=== PATIENT | male | born 1950 | race Caucasian/White ===

== ENCOUNTER 2023-04-26 14:16 | Outpatient (OUT) | payer MEDICARE, SELFPAY ==
[2023-04-26 14:56] LABS: Basophils Percent Auto 0.4 % (0.2-2.0); Eosinophils Absolute Auto 0.2 10^3/uL (0.0-0.7); Eosinophils Percent Auto 2.6 % (0.9-7.0); Hematocrit 49.2 % (42.0-54.0); Hemoglobin 16.4 g/dL (14.0-18.0); Immature Granulocytes Abs Auto 0.02 10^3/uL (0.00-0.03); Immature Granulocytes Pct Auto 0.3 % (0.0-0.5); Lymphocytes Absolute Auto 1.8 10^3/uL (1.2-3.8); Lymphocytes Percent Auto 25.8 % (20.5-60.0); Mean Corpuscular HGB Conc 33.3 g/dL (29.9-35.2); Mean Corpuscular Hemoglobin 29.5 pg (25.9-34.0); Mean Corpuscular Volume 88.5 fL (80.0-94.0); Monocytes Absolute Auto 0.5 10^3/uL (0.3-0.8); Monocytes Percent Auto 6.9 % (1.7-12.0); Neutrophils Absolute Auto 4.4 10^3/uL (1.4-6.5); Platelet Count 156 10^3/uL (150-450); Red Blood Count 5.56 10^6/uL (4.70-6.10); Red Cell Distribution Width 12.9 % (11.0-15.0); White Blood Count 6.8 10^3/uL (4.0-11.0)
[2023-04-26 15:26] LABS: Prostate Specific Antigen Dx 0.81 ng/mL (<=4.00)
[2023-04-26 15:27] LABS: Alanine Aminotransferase 57 U/L (16-63); Albumin Globulin Ratio 0.8; Albumin Level 3.6 g/dL (3.4-5.0); Alkaline Phosphatase 136 U/L (46-116); Anion Gap 13.1; Aspartate Amino Transferase 43 U/L (15-37); Bilirubin Total 0.8 mg/dL (0.2-1.0); Calcium 9.3 mg/dL (8.5-10.1); Carbon Dioxide 26.2 mmol/L (21.0-32.0); Chloride 104 mmol/L (98-107); Chol HDL Ratio 4.5; Cholesterol 210 mg/dL (<=200); Estimated GFR (African America >60 (>=60); Estimated GFR (Non-African Ame 54 (>=60); Globulin 4.3 g/dL; Glucose 116 mg/dL (74-106); HDL Cholesterol 47 mg/dL (40-60); Potassium 4.3 mmol/L (3.5-5.1); Sodium 139 mmol/L (136-145); Total Protein 7.9 g/dL (6.4-8.2); Triglycerides 433 mg/dL (<=150); VLDL CHOLESTEROL 86.6 mg/dL
[2023-04-26 15:30] LABS: LDL Cholesterol Direct 97 mg/dL
== END 2023-04-26 14:17 | disposition home or self-care (01) ==
LOC: LAB 14:21
PROVIDERS: PCP Family Medicine; Visit Provider Physician Assistant
DX: Z00.00 Encounter for general adult medical examination without abnormal findings (principal); E11.21 Type 2 diabetes mellitus with diabetic nephropathy; E78.2 Mixed hyperlipidemia; Z12.5 Encounter for screening for malignant neoplasm of prostate
CPT/HCPCS: 36415; 80053; 80061; 83721; 84153; 85025

== ENCOUNTER 2023-06-11 13:18 | Emergency (ER) | payer MEDICARE, SELFPAY ==
[2023-06-11 13:26] VITALS: BP 155/98; PULSE 71; RESP 18; TEMP 37.1; O2SAT 94; BMI 37.1
--- OUTSIDE RECORDS SUMMARY | 2023-06-11 13:35 | XMS_ITS | CCD ---
Author Organization [facility] Care Team Providers Care Reproduction Order Processor Name Role Phone Humberto Emmanuel Primary Care Provider [phone] HUMBERTO EMMANUEL Primary Care Unavailable TYLER TAMEZ Admitting Unavailable TYLER TAMEZ Attending Unavailable HUMBERTO EMMANUEL Primary Care Unavailable HUMBERTO EMMANUEL Primary Care Unavailable Bryant Alvares MD Unavailable Humberto Emmanuel MD Unavailable Humberto Emmanuel MD Primary Care Provider HUMBERTO EMMANUEL Attending Unavailable CINTHIA MEJIA Attending Unavailable Medications Current Medications Medication Drug Class(es) Dates Sig (Normalized) Sig (Original) Acetaminophen / HYDROcodone (1 source) Opioid Agonist Start: 05-17-2019 hydrocodone-aceta minophen (NORCO) tablet 5-325 mg (STARTER PACK) aspirin 81 mg chewable tablet (2 sources) Platelet Aggregation Inhibitor, Nonsteroidal Anti-inflammatory Drug aspirin 81 MG chewable tablet 1 (one) time each day at the same time. 0 Active take 1 tablet by mouth once laverne y aspirin 81 MG tablet Take 81 mg by mouth daily 0 Active atorvastatin 40 mg oral tablet (2 sources) HMG-CoA Reductase Inhibitor atorvastatin (Lipitor) 40 MG tablet 1 (one) time each day at the same time. 0 Active baclofen 10 mg oral tablet (1 source) gamma-Aminobutyric Acid-ergic Agonist take 1 tablet by mouth three times daily baclofen (LIORESAL) 10 MG tablet Take 10 mg by mouth 3 times daily 0 Active cholecalciferol 0.025 mg oral capsule (2 sources) Vitamin D cholecalciferol (Vitamin D-3) 25 MCG (1000 UT) capsule 1 (one) time each day at the same time. 0 Active Continuous Blood Gluc Electrical Systems Designer ([employer] Akila 2 Adams) device (1 source) Start: 022 Continuous Blood Gluc Electrical Systems Designer (FreeStyle Akila 2 Adams) device DIRECTED DAILY 30 DAYS 0 01/15/2022 Active Continuous Blood Gluc Sensor (FreeStyle Akila 2 Sensor) [facility] [place] (1 source) Start: Continuous Blood Gluc Sensor (FreeStyle Akila 2 Sensor) [facility] Indications: Type 2 diabetes mellitus without complications (CMS/HCC) Inject 1 each under the skin every 14 (fourteen) days. 2 each 12/01/2022 Active empagliflozin 25 mg / linagliptin 5 mg oral tablet (1 source) Dipeptidyl Peptidase 4 Inhibitor, Sodium-Glucose Cotransporter 2 Inhibitor Empagliflozin-Linagl i ptin 25-5 MG TABS Take by mouth 0 Active glipiZIDE er 5 mg 24 hr extended release oral tablet (2 sources) Sulfonylurea Start: take 5 mg by mouth every twelve hours for diabetes mellitus and diabetes mellitus glipiZIDE XL (Glucotrol XL) 5 MG 24 hr tablet Indications: Diabetes mellitus with kidney disease (CMS/HCC) Take 1 tablet (5 mg) by mouth every 12 (twelve) hours 200 tablet 2 03/18/2023 Active take 1 tablet by mouth once laverne y glipiZIDE (GLUCOTROL XL) 2.5 MG extended release tablet Take 2.5 mg by mouth daily 0 Active 3 ml insulin glargine 100 unt/ml / lixisenatide 0.033 mg/ml pen injector (1 source) Insulin Analog Start: 04-12-2023 End: 04-11-2024 inject 2 [IU] by subcutaneous injection before mealtime insulin glargine-lixisenatide (Soliqua) 100-33 UNT-MCG/ML pen Indications: Type 2 diabetes mellitus without complication, with long-term current use of insulin (CMS/HCC) , Diabetic nephropathy associated with type 2 diabetes mellitus (HCC) (CMS/HCC) Inject 30 Units under the skin in the morning. Inject before meals. Increase by 2 units every 4 days till morning sugars are less than 120. If low sugars reduce Humulin N. Goal is to get off Humulin N completely. 0 04/12/2023 04/11/2024 Active 3 ml insulin isophane, human 100 unt/ml pen injector (1 source) Start: 04-19-2023 insulin NPH, Isophane, (HumuLIN N KWIKPEN) 100 UNIT/ML injection Indications: Type 2 diabetes mellitus without complication, with long-term current use of insulin ([facility]) INJECT 22 UNITS IN THE MORNING AND 20 UNITS IN THE EVENING UNDER THE SKIN. INCREASE BY 2 UNITS ALTERNATING EVERY 4 DAYS TILL AVERAGE SUGARS ARE 120 OR LESS. 15 mL 3 04/19/2023 Active metFORMIN hydrochloride 500 mg oral tablet (1 source) Biguanide take 1 tablet by mouth twice daily at mealtime metFORMIN (GLUCOPHAGE) 500 MG tablet Take 500 mg by mouth 2 times daily (with meals) 0 Active naproxen 500 mg oral tablet (1 source) Nonsteroidal Anti-inflammator y Drug Start: 05-17-2019 take 1 tablet by mouth twice daily naproxen (NAPROSYN) 500 MG tablet Take 1 tablet by mouth 2 times daily 14 tablet 0 05/17/2019 Active nystatin 082808 unt/ml topical cream (1 source) Polyene Antifungal Start: 02-27-2022 nystatin (Mycostatin) cream 1 application every 12 (twelve) hours. 0 02/27/2022 Active oxaprozin 600 mg oral tablet (3 sources) Nonsteroidal Anti-inflammator y Drug Start: 08-18-2022 oxaprozin (Daypro) 600 MG tablet Indications: Chronic arthritis TAKE 1 TABLET DAILY 90 tablet 3 09/10/2022 Active take 2 tablets by mouth once gayatri ly oxaprozin (DAYPRO) 600 MG tablet Take 1,200 mg by mouth daily 0 Active traMADol hydrochloride 50 mg oral tablet (1 source) Opioid Agonist take 1 tablet by mouth every six hours as needed for pain traMADol (ULTRAM) 50 MG tablet Take 50 mg by mouth every 6 hours as needed for Pain. 0 Active valsartan 80 mg oral tablet (2 sources) Angiotensin 2 Receptor Abdoulaye valsartan (Diovan) 80 MG tablet 1 (one) time each day at the same time. 0 Active Problems Active Problems Problem Classification Problem Date Documented Da te Episodic/Chronic Diabetes mellitus with complications (2 sources) Diabetes mellitus; Translations: [Type 2 diabetes mellitus with diabetic nephropathy] Onset: 08-24-2022 08-24-2022 Chronic Diabetes mellitus without complication (1 source) Type 2 diabetes mellitus without complication; Translations: [Type 2 diabetes mellitus without complications] Onset: 08-24-2022 08-24-2022 Chronic Disorders of lipid metabolism (1 source) Hyperlipidemia; Translations: [Hyperlipidemia, unspecified] Onset: 08-24-2022 08-24-2022 Chronic Hypertension with complications and secondary hypertension (1 source) Hypertension secondary to endocrine disorder; 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] Onset: 08-24-2022 08-24-2022 Chronic Immunizations and screening for infectious disease (1 source) Encounter for immunization; Translations: [Encounter For Immunization] Onset: 08-12-2020 Episodic Osteoarthritis (2 sources) Arthritis; Translations: [Unspecified osteoarthritis, unspecified site] Onset: 08-18-2022 08-18-2022 Chronic Other nutritional; endocrine; and metabolic disorders (1 source) Metabolic syndrome X; Translations: [Dysmetabolic syndrome X] Onset: 08-24-2022 08-24-2022 Chronic Spondylosis; intervertebral disc disorders; other back problems (1 source) Inflammation of sacroiliac joint; Translations: [Sacroiliitis, not elsewhere classified] Onset: 08-24-2022 08-24-2022 Chronic Sprains and strains (1 source) Strain of muscle of chest wall; Translations: [Muscle strain of chest wall, initial encounter] Episodic Past or Other Problems Problem Classification Problem Date Documented Da te Episodic/Chronic Calculus of urinary tract (1 source) Kidney stone; Translations: [Calculus of kidney] Onset: 08-24-2022 08-24-2022 Episodic Hemorrhoids (1 source) Internal hemorrhoids; Translations: [Other hemorrhoids] Onset: 08-24-2022 08-24-2022 Episodic Unclassified (1 source) Patient encounter status; Translations: [Colon cancer screening] Onset: 07-19-2018 Resolved: 08-28-2018 08-28-2018 Results Test Name Value Interpretation Reference Range Facility Complete Blood Count with Au to Diffon 07-22-2021 Basophils (Bld) [#/Vol] 0.04 10*3/uL Normal 0.00-0.20 [facility] Investment Banking Analyst Comment on above: Performed By: #### C MP, LIPD, CBCAD #### [facility] [address] [place] [id number] Basophils/100 WBC (Bld) 0.8 % Normal [facility] Comment on above: Performed By: #### C MP, LIPD, CBCAD #### [facility] [address] [place], [place] [id number] Eosinophils (Bld) [#/Vol] 0.20 10*3/uL Normal 0.02-0.50 [facility] Comment on above: Performed By: #### C MP, LIPD, CBCAD #### [facility] [address] [place], [place] [id number] Eosinophils/100 WBC (Bld) 4.2 % Normal [facility] Comment on above: Performed By: #### C MP, LIPD, CBCAD #### [facility] [address] [place], [place] [id number] Erythrocyte distribution width (RBC) [Ratio] 13.5 % Normal 11.0-15.0 [facility] [employer] Banking Analyst Comment on above: Performed By: #### C MP, LIPD, CBCAD #### [facility] [address] [place], [place] [id number] Hematocrit (Bld) [Volume fraction] 49.3 % Normal 38.5-50.0 [facility] Comment on above: Performed By: #### C MP, LIPD, CBCAD #### [facility] [address] [place], [place] [id number] Hemoglobin (Bld) [Mass/Vol] 16.2 g/dL Normal 13.0-17.1 [facility] [employer] Analyst Comment on above: Performed By: #### C MP, LIPD, CBCAD #### [facility] [address] [place], [place] [id number] Lymphocytes (Bld) [#/Vol] 1.4 10*3/uL Normal 0.9-3.9 [facility] Comment on above: Performed By: #### C MP, LIPD, CBCAD #### [facility] [address] [place], [place] [id number] Lymphocytes/100 WBC (Bld) 30.3 % Normal [facility] Comment on above: Performed By: #### C MP, LIPD, CBCAD #### [facility] [address] [place], [place] [id number] MCH (RBC) [Entitic mass] 29.2 pg Normal 27.0-33.0 [facility] Comment on above: Performed By: #### C NEYDA ALVARADO, CBCAD #### [facility] [address] [place], [place] [id number] MCHC (RBC) [Mass/Vol] 32.9 g/dL Normal 32.0-36.0 [facility] Comment on above: Performed By: #### C NEYDA ALVARADO, CBCAD #### [facility] [address] [place], [place] [id number] MCV (RBC) [Entitic vol] 89 fL Normal 80-100 [facility] Comment on above: Performed By: #### C NEYDA ALVARADO, CBCAD #### [facility] [address] [place], [place] [id number] Monocytes (Bld) [#/Vol] 0.3 10*3/uL Normal 0.2-0.9 [facility] Comment on above: Performed By: #### C NEYDA ALVARADO, CBCAD #### [facility] [address] [place], [place] [id number] Monocytes/100 WBC (Bld) 6.3 % Normal [facility] Comment on above: Performed By: #### C NEYDA ALVARADO, CBCAD #### [facility] [address] [place], [place] [id number] Neutrophils (Bld) [#/Vol] 2.8 10*3/uL Normal 1.5-7.8 [facility] Comment on above: Performed By: #### C NEYDA ALVARADO, CBCAD #### [facility] [address] [place], [place] [id number] Neutrophils/100 WBC (Bld) 58.0 % Normal [facility] Comment on above: Performed By: #### C NEYDA ALVARADO, CBCAD #### [facility] [address] [place], [place] [id number] Platelet mean volume (Bld) [Entitic vol] 10.60 fL Normal 7.50-12.50 [facility] Comment on above: Performed By: #### C NEYDA ALVARADO, CBCAD #### [facility] [address] [place], [place] [id number] Platelets (Bld) [#/Vol] 135 10*3/uL Low 140-400 [facility] Comment on above: Performed By: #### C MP, LIPD, CBCAD #### [facility] [address] [place], [place] [id number] RBC (Bld) [#/Vol] 5.55 10*6/uL Normal 4.20-5.80 [facility] Comment on above: Performed By: #### C MP, LIPD, CBCAD #### [facility] [address] [place], [place] [id number] RDW-SD 44.0 fL Normal 37.0-50.0 [facility] Comment on above: Performed By: #### C MP, LIPD, CBCAD #### [facility] [address] [place], [place] [id number] WBC (Bld) [#/Vol] 4.8 10*3/uL Normal 3.8-11.0 [facility] Comment on above: Performed By: #### C MP, LIPD, CBCAD #### [facility] [address] [place], [place] [id number] Comprehensive Metabolic Pane [facility] 07-22-2021 Albumin [Mass/Vol] 4.6 g/dL Normal 3.6-5.1 [facility] Comment on above: Performed By: #### C MP, LIPD, CBCAD #### [facility] [address] [place], [place] [id number] Albumin/Globulin [Mass ratio] 1.9 {ratio} Normal 1.0-2.5 [facility] Comment on above: Performed By: #### C MP, LIPD, CBCAD #### [facility] [address] [place], [place] [id number] ALP [Catalytic activity/Vol] 116 U/L Normal 40-129 [facility] Comment on above: Performed By: #### C MP, LIPD, CBCAD #### [facility] [address] [place], [place] [id number] ALT [Catalytic activity/Vol] 31 U/L Normal 9-46 [place] [employer] Analyst Comment on above: Result Comment: 02/19 Female reference range changed. Performed By: #### C MP, LIPD, CBCAD #### [facility] [address] [place], [place] [id number] Anion gap [Moles/Vol] 17 mmol/L Normal 12-20 [facility] Comment on above: Result Comment: Effe ctive 03/27/2019 reference range changed. Performed By: #### C MP LIPD, CBCAD #### [facility] [address] [place], [place] [id number] AST [Catalytic activity/Vol] 28 U/L Normal 10-40 [facility] Comment on above: Performed By: #### C JENNY LIPD, CBCAD #### [facility] [address] [place], [place] [id number] Bilirubin [Mass/Vol] 0.65 mg/dL Normal 0.30-1.20 [facility] Comment on above: Performed By: #### C JENNY LIPD, CBCAD #### [facility] [address] [place], [place] [id number] BUN/CREA 16 Ratio Normal 6-22 [facility] Comment on above: Performed By: #### C JENNY LIPD, CBCAD #### [facility] [address] [place], [place] [id number] Calcium [Mass/Vol] 9.8 mg/dL Normal 8.6-10.2 [facility] Comment on above: Performed By: #### C JENNY LIPD, CBCAD #### [facility] [address] [place], [place] [id number] Chloride [Moles/Vol] 105 mmol/L Normal 98-107 [facility] Comment on above: Performed By: #### C MP, LIPD, CBCAD #### [facility] [address] [place], [place] [id number] CO2 [Moles/Vol] 21 mmol/L Normal 20-31 [facility] Comment on above: Performed By: #### C MP LIPD, CBCAD #### [facility] [address] [place], [place] [id number] Creatinine [Mass/Vol] 1.1 mg/dL Normal 0.7-1.4 [facility] [employer] Analyst Comment on above: Performed By: #### C NEYDA ALVARADO, CBCAD #### [facility] [address] [place], [place] [id number] eGFRAA 83 mL/min/1.73m2 Normal >60 [facility] [employer] Analyst Comment on above: Performed By: #### C JENNY LIPD, CBCAD #### [facility] [address] [place], [place] [id number] eGFRNAA 68 mL/min/1.73m2 Normal >60 [facility] [employer] Analyst Comment on above: Performed By: #### C JENNY LIPD, CBCAD #### [facility] [address] [place], [place] [id number] Globulin (S) [Mass/Vol] 2.4 g/dL Normal 1.9-3.7 [facility] [employer] Analyst Comment on above: Performed By: #### C SAKSHI ALVARADOD, CBCAD #### [facility] [address] [place], [place] [id number] Glucose [Mass/Vol] 143 mg/dL High 65-99 [facility] [employer] Banking Analyst Comment on above: Result Comment: For FASTING Glucose --- ADA reference ranges: Normal 65-99 mg/dl Prediabetes 100-125 Diabetes >/= 126 Performed By: #### C SAKSHI ALVARADOD, CBCAD #### [facility] [address] [place], [place] [id number] Potassium [Moles/Vol] 4.3 mmol/L Normal 3.5-5.5 [facility] [employer] Analyst Comment on above: Performed By: #### C JENNY LIPD, CBCAD #### [facility] [address] [place], [place] [id number] Protein [Mass/Vol] 7.0 g/dL Normal 6.1-8.1 [facility] [employer]ing Analyst Comment on above: Performed By: #### C JENNY LIPD, CBCAD #### [facility] [address] [place], [place] [id number] Sodium [Moles/Vol] 139 mmol/L Normal 135-146 [facility] [employer] Banking Analyst Comment on above: Performed By: #### C JENNY LIPD, CBCAD #### [facility] [address] [place], [place] [id number] Urea nitrogen [Mass/Vol] 17 mg/dL Normal 7-25 [facility] [employer] Analyst Comment on above: Performed By: #### C SAKSHI ALVARADOD, CBCAD #### [facility] [address] [place], [place] [id number] Lipid Panelon 07-22-2021 Cholesterol [Mass/Vol] 203 mg/dL High 125-200 [facility] [employer] Analyst Comment on above: Result Comment: Low risk < 200mg/dL Borderline risk 201-239 mg/dl High risk > or equal to 240 Performed By: #### C JENNY, LIPD, CBCAD #### [facility] [address] [place], [place] [id number] Cholesterol in HDL [Mass/Vol] 41 mg/dL Normal >40 [facility] [employer] Analyst Comment on above: Result Comment: High Cardiovascular Risk HDL <40 mg/dL Low Cardiovascular Risk HDL > or equal to 60 mg/dl Performed By: #### C JENNY, LIPD, CBCAD #### [facility] [address] [place], [place] [id number] Cholesterol in LDL [Mass/Vol] 82 mg/dL Normal [facility] [employer] Analyst Comment on above: Result Comment: LDL ATP III CLASSIFICATION LDL less than 100 mg/dl Optimal LDL 100-129 mg/dl Near or above optimal LDL 130-159 Borderline high LDL 160-189 High LDL greater than 189 mg/dl Very High Performed By: #### C JENNY, LIPD, CBCAD #### [facility] [address] [place], [place] [id number] Cholesterol in VLDL [Mass/Vol] 80 mg/dL Normal [facility] [employer] Analyst Comment on above: Performed By: #### C JENNY, LIPD, CBCAD #### [facility] [address] [place], [place] [id number] Cholesterol.total/C holesterol in HDL [Mass ratio] 5 {ratio} Normal [facility] [employer] Analyst Comment on above: Performed By: #### C JENNY, LIPD, CBCAD #### [facility] [address] [place], [place] [id number] Triglyceride [Mass/Vol] 399 mg/dL High 30-150 [facility] [employer] Analyst Comment on above: Result Comment: TRIG ATPIII CLASSIFICATIONS TRIG less than 150 mg/dl Normal TRIG 150-199 mg/dl Borderline High TRIG 200-500 mg/dl High TRIG greather than 500 mg/dl Very High Performed By: #### C MP, LIPD, CBCAD #### [facility] [address] [place], [place] [id number] PSA SCREEN (MEDICARE)on TPSA 0.942 ng/mL Normal <4.000 [facility] [employer] Analyst Comment on above: Result Comment: PSA Test Method: ECLIA/Natalia e 601 Performed By: #### P SA #### [facility] [address] [place], [place] [id number] XR RIBS LEFT INCLUDE CHEST ( MIN 3 VIEWS)on 05-17-2019 XR RIBS LEFT INCLUDE CHEST (MIN 3 VIEWS) EXAMINATION: 3 XRAY VIEWS OF THE LEFT RIBS WITH FRONTAL XRAY VIEW OF THE CHEST 05/17/2019 7:01 pm COMPARISON: None. HISTORY: ORDERING SYSTEM PROVIDED HISTORY: Acute left chest pain after coughing FINDINGS: 5 images are presented. The cardiomediastinal and hilar silhouettes appear unremarkable. Chronic appearing coarse interstitial densities predominate perihilar regions and lung bases, typical of sequela from smoking or other previous infectious/inflammator y process. The lungs are hyperinflated with mild flattening of the hemidiaphragms, increased translucency both lung apices and tapering of the vasculature in the upper lungs. Calcified granulomata are present both lower lungs. The lungs appear otherwise clear. No pleural effusion or pneumothorax is seen. No acute osseous abnormality is identified. Dedicated images of the left ribs appear unremarkable. No rib lesion or fracture is seen. IMPRESSION: No discrete left rib fracture. No radiographic evidence of acute cardiopulmonary disease. Pulmonary sequela typical of that seen with smoking (passive or active), including possible COPD; correlate with clinical history. Bone scan correlation may be considered if pain persists or worsens, or if clinically there is concern for underlying radiographically occult process. Interpreted by: Angel Ha MD Signed by: Angel Ha MD 05/17/19 Final result Normal [facility] No discrete left rib fracture. No radiographic evidence of acute cardiopulmonary disease. Pulmonary sequela typical of that seen with smoking (passive or active), including possible COPD; correlate with clinical history. Bone scan correlation may be considered if pain persists or worsens, or if clinically there is concern for underlying radiographically occult process. [place], [place] EXAMINATION: 3 XRAY VIEWS OF THE LEFT RIBS WITH FRONTAL XRAY VIEW OF THE CHEST 05/17/2019 7:01 pm COMPARISON: None. HISTORY: ORDERING SYSTEM PROVIDED HISTORY: Acute left chest pain after coughing FINDINGS: 5 images are presented. The cardiomediastinal and hilar silhouettes appear unremarkable. Chronic appearing coarse interstitial densities predominate perihilar regions and lung bases, typical of sequela from smoking or other previous infectious/inflammator y process. The lungs are hyperinflated with mild flattening of the hemidiaphragms, increased translucency both lung apices and tapering of the vasculature in the upper lungs. Calcified granulomata are present both lower lungs. The lungs appear otherwise clear. No pleural effusion or pneumothorax is seen. No acute osseous abnormality is identified. Dedicated images of the left ribs appear unremarkable. No rib lesion or fracture is seen. [place], [place] Rob, [facility] Incoming Radiant Results From [employer] - 05/17/2019 7:10 PM EST EXAMINATION: 3 XRAY VIEWS OF THE LEFT RIBS WITH FRONTAL XRAY VIEW OF THE CHEST 05/17/2019 7:01 pm COMPARISON: None. HISTORY: ORDERING SYSTEM PROVIDED HISTORY: Acute left chest pain after coughing FINDINGS: 5 images are presented. The cardiomediastinal and hilar silhouettes appear unremarkable. Chronic appearing coarse interstitial densities predominate perihilar regions and lung bases, typical of sequela from smoking or other previous infectious/inflammator y process. The lungs are hyperinflated with mild flattening of the hemidiaphragms, increased translucency both lung apices and tapering of the vasculature in the upper lungs. Calcified granulomata are present both lower lungs. The lungs appear otherwise clear. No pleural effusion or pneumothorax is seen. No acute osseous abnormality is identified. Dedicated images of the left ribs appear unremarkable. No rib lesion or fracture is seen. IMPRESSION: No discrete left rib fracture. No radiographic evidence of acute cardiopulmonary disease. Pulmonary sequela typical of that seen with smoking (passive or active), including possible COPD; correlate with clinical history. Bone scan correlation may be considered if pain persists or worsens, or if clinically there is concern for underlying radiographically occult process. [place], [place] Vital Signs Date Time Vital Sign Value Performing Clinician Faci lity 05-17-2019 18:34-0500 BP Diastolic 69 mm[Hg] [facility] , [place] 05-17-2019 18:34-0500 BP Systolic 131 mm[Hg] [place], [place] 05-17-2019 18:34-0500 Pulse (Heart Rate) 81 /min [place], [place] 05-17-2019 18:34-0500 Respiratory Rate 20 /min [facility], [place] 05-17-2019 18:16-0500 BMI (Body Mass Index) 38.4 kg/m2 [place], [place] 05-17-2019 18:16-0500 Body Temperature 97.9 [degF] [facility], [place] 05-17-2019 18:16-0500 Body weight 117.94 kg [facility] , [place] 05-17-2019 18:16-0500 Pulse Oximetry 96 % [place], [place] Encounters Encounter Date Encounter Type Care Provider Facility Start: 04-26-2023 End: 04-26-2023 ambulatory CINTHIA Camille JACKIE Not Available Start: 04-26-2023 Chart abstracting Cinthia Camille Denisse er PA Work Phone: [facility] Start: 04-12-2023 End: 04-12-2023 ambulatory HUMBERTO EMMANUEL Not Available Start: 08-12-2020 End: 08-12-2020 General Kandi Sol PharmD Work Phone: [facility] Work Phone: Start: 05-17-2019 End: 05-17-2019 Emergency department patient visit [facility] Camille [facility] Start: 05-17-2019 End: 05-17-2019 Emergency department patient visit [facility] ED Comment on above: Muscle strain of erick st wall, initial encounter (Primary Dx) Start: 08-26-2018 End: 08-26-2018 Emergency department patient visit HUMBERTO WALKERA [facility] Start: 08-03-2018 End: 08-03-2018 Patient encounter procedure TYLER TAMEZ [facility] Procedures Date Procedure Procedure Detail Performing Clinician Start: 08-12-2020 Imm. administration COVID19 Mitch & Mitch Kandi Hoselamg PharmD Work Phone: Start: 08-12-2020 SARS-CoV-2 vaccine, 0.5ml Mitch & Mitch Kandi Hoyng PharmD Work Phone: Start: 05-17-2019 Radex ribs uni w/pos teroant ch minimum 3 views RUGEN CHOLO Start: 05-17-2019 Radex ribs uni w/pos teroant ch minimum 3 views Jamel Del Toro Work Phone: Start: 08-03-2018 DIET GENERAL HUMBERTO CHOLO Start: 08-03-2018 MISCELLANEOUS NURSIN G CARE ORDER (SPECIFY) RUGEN CHOLO Start: 08-03-2018 REMOVE IV RUGEN CHOLO Start: 08-03-2018 VITAL SIGNS RUGEN CHOLO Start: 08-03-2018 DISCHARGE PATIENT RUGEN CHOLO Start: 08-03-2018 INSERT PERIPHERAL IV RU GEN CHOLO Start: 08-03-2018 Colonoscopy Cinthia AVILES Work Phone: Plan of Treatment Date Care Activity Detail Author Start: 08-03-2028 Colon cancer screen colonoscopy Colon cancer screen colonoscopy [place], [place] Start: 08-03-2028 Screening for malign ant neoplasm of colon [facility] Start: 05-01-2024 Glaucoma screening Diabetes: R etinopathy Screening [facility] Start: 01-09-2024 Pneumococcal Vaccine : 65+ Years (2 - PCV) Pneumococcal Vaccine: 65+ Years (2 - PCV) [facility] Comment on above: Postponed from 03/12 (Patient Refused) Start: 10-11-2023 End: 10-11-2023 Patient encounter procedure 10/11/2023 1:00 PM EDT Office Visit [facility] [address] [facility] [address] [place] [id number] Humberto Emmanuel MD [address] [facility] [address] [place], [place] [id number] [facility] Start: 07-12-2023 Hemoglobin A1c measurement Diabetes: Hemoglobin A1C [facility] Start: 06-23-2023 Medicare Annual Wellness (AWV) Medicare Annual Wellness (AWV) [facility] Start: 04-26-2023 End: 04-26-2023 Patient encounter procedure 04/26/2023 1:30 PM EST Office Visit [facility] [address] [facility] [address] [place] [phone] Cinthia Mejia PA [address] [facility] [address] [place] [address] [facility] Start: 11-20-2018 Influenza vaccination Flu vaccine (# 1) [place], [place] Start: 09-11-2018 Annual Wellness Visi t (AWV) Annual Wellness Visit (AWV) [place] Start: 2016 Pneumococcal 65+ yea rs Vaccine (1 of 1 - PPSV23) Pneumococcal 65+ years Vaccine (1 of 1 - PPSV23) [place] Start: 02-21-2015 Creatinine monitoring Creatinine mon itoring [place] Start: 02-21-2015 Lipid screen Lipid screen [place], [place] Start: 02-21-2015 Potassium monitoring Potassium monit [place]ing [place] Start: 2001 Shingles Vaccine (1 of 2) Shingles Vaccine (1 of 2) [place] Start: 1962 DTaP/Tdap/Td vaccine (1 - Tdap) DTaP/Tdap/Td vaccine (1 - Tdap) [place] Start: 1950 AAA screen AAA screen [place], [place] Start: 1950 Hepatitis C screen Hepatitis C scree n [place], [place] Start: 1950 Screening for malign ant neoplasm of colon [facility] Immunizations Immunization Date Immunization Notes Care Provider Fa cili 01-12-2023 Influenza, High-dose Seasonal, Quadrivalent, Preservative Free Cinthia AVILES Work Phone: [facility] 01-15-2022 influenza, high dose seasonal, preservative-free Cinthia Hemmer PA Work Phone: [facility] 01-20-2021 influenza, high dose seasonal, preservative-free Cinthia Hemmer PA Work Phone: [facility] 08-12-2020 Mitch and Mitch COVID 19 Vaccine; Translations: [Annette] Bryant Alvares MD Work Phone: [facility] Work Phone: Comment on above: Note: Patient tolera arielle well. No signs or symptoms of adverse reactions. Patient waited a minimum of 15 minutes. 12-19-2019 influenza, high dose seasonal, preservative-free Cinthia Hemmer PA Work Phone: [facility] 12-19-2019 Influenza, High-dose Seasonal, Quadrivalent, Preservative Free Cinthia Hemmer PA Work Phone: [facility] 02-09-2019 influenza, high dose seasonal, preservative-free Cinthia Hemmer PA Work Phone: [facility] 02-09-2019 Influenza, High-dose Seasonal, Quadrivalent, Preservative Free Cinthia Hemmer PA Work Phone: [facility] 03-18-2017 influenza, injectabl e, quadrivalent, contains preservative Cinthia Hemmer PA Work Phone: [facility] 03-18-2017 influenza, injectabl e, quadrivalent, preservative free Cinthia Hemmer PA Work Phone: [facility] 03-12-2017 pneumococcal polysaccharide vaccine, 23 valent Cinthia Hemmer PA Work Phone: [facility] 12-26-2015 influenza, injectabl e, quadrivalent, contains preservative Cinthia Hemmer PA Work Phone: [facility] 12-26-2015 influenza, injectabl e, quadrivalent, preservative free Cinthia Hemmer PA Work Phone: [facility] Payers Date Payer Category Payer Medicare ANTHEM MEDICARE ADVANTAGE ANTH MEDICARE ADVANTAGE [id number] 2022-Present [address] [place] [address] [id number] 2019 Medicare [facility] MEDICARE AN THEM MEDIBLUE ESSENTIAL/PLUS xxxxxxxxxxxx 2019-Present [address] [address] [place] [address] xxxxxxxxxxxx [id number] 2019 Medicare [id number] 2017 Medicare [id number] 1950 Unknown [id number] 1950 Unknown [id number] 1950 Unknown [id number] 1950 Unknown [id number] 1950 Unknown [id number] Social History Date Type Detail Facility Start: 05-17-2019 Tobacco smoking stat [facility] Former smoker [place] End: 07-06-1992 History of tobacco use Current [place]oker [place] Start: 05-17-2019 End: 04-26-2023 Alcohol intake Current drinker of alcohol (finding) [place] Start: 08-03-2018 Alcohol Comment SOCIAL [place] Start: 1950 Sex Assigned At Not on file [place], [place] Tobacco smoking status Unknown if ever sm [facility] Work Phone: Start: 08-24-2022 [facility] Start: 08-24-2022 Tobacco use and exposure Smokeless tobacco non-user [facility] Start: 04-12-2023 History of Social function [facility] Start: 04-12-2023 Tobacco use panel [facility] Start: 04-12-2023 Alcohol Comment Points: 2, Interpretation: Negative; Caffeine Intake: 3-4 cups per day [facility] Medical Equipment Procedure Code Equipment Code Equipment Origin al Text Equipment Identifier Dates USE DIRECTED TWICE A DAY [id number] Start: 07-16-2022 USE DIRECTED TO INJECT INTO THE SKIN TWICE DAILY [id number] Start: 03-26-2022 1 strip by In Vi tro route in the morning. [id number] Start: 02-04-2023 1 Device in the morning. [id number] Start: 02-04-2023 Evaluation note Note Date & Type Note Facility Evaluation note Includes: Assessments for all patient encounters Findings Encounter for Immunization 1st COVID Vac cine with Kandi Sol PharmD 08/12/2020 [facility] Work Phone: History general Narrative - Reported Note Date & Type Note Facility History general Narrative - Reported Includes: Medical History in patient's chartNo Medical History Recorded [facility] Work Phone: History of Present illness Narrative Note Date & Type Note Facility History of Present illness Narrative History of Present Illness not supported for this document typeNo History of Present Illness Recorded [facility] Work Phone: Instructions Note Date & Type Note Facility Instructions Instructions not supported for this document typeNo Instructions Recorded [facility] Work Phone: Patient problem outcome Narrative Note Date & Type Note Facility Patient problem outcome Narrative Includes: Evaluations & Outcomes for active GoalsNo Outcomes Recorded [facility] Work Phone: Reason for referral (narrative) Note Date & Type Note Facility Reason for referral (narrative) No Reason for Referral Recorded [facility] Work Phone: Review of systems Narrative - Reported Note Date & Type Note Facility Review of systems Narrative - Reported Review of Systems not supported for this document typeNo Review of Systems Recorded [facility] Work Phone: Discharge Instructions * Instructions* Jamel Del Toro II, PA-C - 05/17/2019 Return to the emergency department anytime should become short of breath develop a fever or have worsening pain. * Attachments The following attachments cannot be sent through Care Everywhere. 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 Pt states he was coughing Wednesday and felt something go poof in his left rib cage (unrecognized sect ion and content) No Status Records FoundNo Status Records FoundNo Status Records Found INFORMATION SOURCE (unrecogn ized section and content) DATE CREATED AUTHOR 05/18/2019 [facility] DATE CREATED AUTHOR AUTHOR'S ORGANIZ ATION 07/24/2021 [facility] dical Specialist DATE CREATED AUTHOR AUTHOR'S ORGANIZ ATION 04/27/2023 [facility] dical Specialists EPIC Care Teams (unrecognized sec tion and content) Reproduction Order Processor Relationship Specialty Start Date End Date Humberto Emmanuel MD [address] [facility] [address] [place] [address] PCP - Benito GRIGGS 03/22/21 Humberto Emmanuel MD [address] [facility] [address] [place] [address] PCP - General Family Medicine 08/20/22 FOR RECORDS PERTAINING TO PATIENTS WHO ARE OR HAVE BEEN ENROLLED IN A CHEMICAL DEPENDENCY/SUBSTANCEABUSE PROGRAM, SOME INFORMATION MAY BE OMITTED. This clinical summary was aggregated from multiple sources. Caution should be exercised in using it in the provision of clinical care. This summary normalizes information from multiple sources, and as a consequence, information in this document may materially change the coding, format and clinical context of patient data. In addition, data may be omitted in some cases. CLINICAL DECISIONS SHOULD BE BASED ON THE PRIMARY CLINICAL RECORDS. [facility] [place] [facility]. provides no warranty or guarantee of the accuracy or completeness of information in this document.
[2023-06-11] MEDS: 0.9 % SODIUM CHLORIDE 1,000 ML 999 ML IV (14:14)
[2023-06-11] MEDS: METHYLPREDNISOLONE SOD SUCC PF 125 MG/2 ML VIAL IVP (14:14)
[2023-06-11] MEDS: KETOROLAC TROMETHAMINE 30 MG/ML VIAL IVP (14:14)
[2023-06-11 14:27] LABS: Basophils Percent Auto 0.3 % (0.2-2.0); Eosinophils Absolute Auto 0.2 10^3/uL (0.0-0.7); Eosinophils Percent Auto 2.4 % (0.9-7.0); Hematocrit 47.2 % (42.0-54.0); Hemoglobin 15.8 g/dL (14.0-18.0); Immature Granulocytes Abs Auto 0.02 10^3/uL (0.00-0.03); Immature Granulocytes Pct Auto 0.3 % (0.0-0.5); Lymphocytes Absolute Auto 1.7 10^3/uL (1.2-3.8); Lymphocytes Percent Auto 27.6 % (20.5-60.0); Mean Corpuscular HGB Conc 33.5 g/dL (29.9-35.2); Mean Corpuscular Hemoglobin 29.3 pg (25.9-34.0); Mean Corpuscular Volume 87.4 fL (80.0-94.0); Mean Platelet Volume 10.3 fL (9.5-13.5); Monocytes Absolute Auto 0.4 10^3/uL (0.3-0.8); Monocytes Percent Auto 5.8 % (1.7-12.0); Neutrophils Percent Auto 63.6 % (43.0-75.0); Platelet Count 143 10^3/uL (150-450); Red Cell Distribution Width 12.6 % (11.0-15.0); White Blood Count 6.2 10^3/uL (4.0-11.0)
[2023-06-11 14:39] LABS: Anion Gap 17.3; BUN Creatinine Ratio 10.7; Calcium 9.3 mg/dL (8.5-10.1); Carbon Dioxide 23.7 mmol/L (21.0-32.0); Chloride 104 mmol/L (98-107); Estimated GFR (African America >60 (>=60); Estimated GFR (Non-African Ame 50 (>=60); Glucose 113 mg/dL (74-106); Magnesium 1.9 mg/dL (1.8-2.4); Sodium 141 mmol/L (136-145)
--- NOTE | 2023-06-11 15:03 | ED_ITS ---
HPI - Extremity Problem General Chief complaint: Extremity Problem, Nontraumatic Stated complaint: LEG CRAMPS Time Seen by Provider: 06/11/23 13:22 Source: patient Mode of arrival: Wheelchair History of Present Illness HPI Narrative: The patient complains of Pain and cramping at the back of both thighs and down into both calves that began several days ago and have steadily worsened since that time. He denied any fall or injury. He denied any fever or chills. He denied any vomiting or diarrhea. He says he has been eating and drinking normally and taking his medications as prescribed. He denies being a diabetic and has no prior history of peripheral neuropathy. He denies any associated low back pain. Giav-trx-crtoyrs medications have done nothing to help this cramping . By this morning, the pain had become so that he could barely walk. No bowel or bladder dysfunction. No sensory changes in the pelvis or lower extremity including saddle paresthesias or peripheral sensory changes Or paralysis. Related Data Home Medications ?Medication ?Instructions ?Recorded ?Confirmed atorvastatin 40 mg tablet 40 mg PO DAILY 06/11/23 06/11/23 ezetimibe 10 mg tablet 10 mg PO [facility] 06/11/23 06/11/23 glipizide 5 mg tablet, extended 5 mg PO BID 06/11/23 06/11/23 release 24 hr insulin glargine 100 42 unit subcut [facility] 06/11/23 06/11/23 unit-lixisenatide 33 mcg/mL subcutaneous pen (Soliqua 100/33) oxaprozin 600 mg tablet 600 mg PO DAILY 06/11/23 06/11/23 valsartan 80 mg tablet 80 mg PO DAILY 06/11/23 06/11/23 Previous Rx's ?Medication ?Instructions ?Recorded hydrocodone 5 mg-acetaminophen 325 1 tab PO Q6H PRN pain 4 days #14 06/11/23 mg tablet tabs methylprednisolone 4 mg tablets in 4 mg PO DAILY #21 ea 06/11/23 a dose pack (Medrol (Pasha)) Allergies Allergy/AdvReac Type Severity Reaction Status Date / Time No Known Drug Allergies Allergy Verified 06/11/23 13:30 Exam Narrative Exam Narrative: Nurses notes and vital signs reviewed and patient is not hypoxic. Afebrile General: Well-appearing and in no apparent distress. Skin: Warm, dry, no pallor noted. No rash. Eye: Pupils are equal, round and EOMI. No scleral icterus. Ears, Nose, Mouth, and Throat: Oral mucosa is moist Cardiovascular: Regular Rate and Rhythm without murmur, gallop or rub. Respiratory: No accessory muscle use or respiratory distress. Lungs are clear to auscultation, no wheezing, rales or rhonchi Musculoskeletal: normal ROM, no calf or popliteal tenderness, no lower extremity edema/swelling. Normal bilateral lower extremity DTRs at the patella and Achilles along with great toe lift Back: No midline vertebral, lumbosacral or para lumbar soft tissue tenderness. Neurological: A&O x4. No cranial nerve dysfunction observed. No truncal ataxia. Moves all extremities. Sensation intact. Psychiatric: Cooperative and interactive. Normal mood and affect. Constitutional Vital Signs, click to edit/add: Last Vital Signs Temp 98.7 F 06/11/23 13:26 Pulse 86 06/11/23 17:08 Resp 18 06/11/23 17:08 BP 152/77 H 06/11/23 17:08 Pulse Ox 92 L 06/11/23 17:08 Course Vital Signs Vital signs: Vital Signs Temperature 98.7 F 06/11/23 13:26 Pulse Rate 71 06/11/23 13:26 Respiratory Rate 18 06/11/23 13:26 Blood Pressure 155/98 H 06/11/23 13:26 Pulse Oximetry 94 L 06/11/23 13:26 Temperature 98.7 F 06/11/23 13:26 Pulse Rate 86 06/11/23 17:08 Respiratory Rate 18 06/11/23 17:08 Blood Pressure 152/77 H 06/11/23 17:08 Pulse Oximetry 92 L 06/11/23 17:08 MDM - Extremity (Nontraumatic) MDM Narrative Medical decision making narrative: Electrolytes, renal function, CBC all unremarkable and does not account for why the patient is having so much pain. He had no improvement after getting normal saline IV fluid, IV Solu-Medrol and IV Toradol. He was ordered to receive IV Norflex and IV Dilaudid. On recheck at 1553, his pain is still unchanged. Although he does not have classic exam findings of DVT, I will obtain BL LE US as I have nothing in our evaluation to account for the patient's pain. US does not show DVT in either LE. Patient informed of this result. He was able to stand and use the walker and his pain had decreased - but he was still not pain free. Patient discharged home with prescriptions for medrol dose pack and [place]. PCP follow up recommended. Lab Data Attestation: I reviewed the patient's lab results. Labs: Lab Results 06/11/23 Range/Units 14:12 WBC 6.2 (4.0-11.0) 10^3/uL RBC 5.40 (4.70-6.10) 10^6/uL Hgb 15.8 (14.0-18.0) g/dL Hct 47.2 (42.0-54.0) % MCV 87.4 (80.0-94.0) fL MCH 29.3 (25.9-34.0) pg MCHC 33.5 (29.9-35.2) g/dL RDW 12.6 (11.0-15.0) % Plt Count 143 L (150-450) 10^3/uL MPV 10.3 (9.5-13.5) fL Neut % (Auto) 63.6 (43.0-75.0) % Lymph % (Auto) 27.6 (20.5-60.0) % [place] % (Auto) 5.8 (1.7-12.0) % Eos % (Auto) 2.4 (0.9-7.0) % Baso % (Auto) 0.3 (0.2-2.0) % Neut # (Auto) 4.0 (1.4-6.5) 10^3/uL Lymph # (Auto) 1.7 (1.2-3.8) 10^3/uL [place] # (Auto) 0.4 (0.3-0.8) 10^3/uL Eos # (Auto) 0.2 (0.0-0.7) 10^3/uL Baso # (Auto) 0.0 (0.0-0.1) 10^3/uL Abs Immat Gran (auto) 0.02 (0.00-0.03) 10^3/uL Imm/Tot Granulo (auto) 0.3 (0.0-0.5) % Sodium 141 (136-145) mmol/L Potassium 4.0 (3.5-5.1) mmol/L Chloride 104 (98-107) mmol/L Carbon Dioxide 23.7 (21.0-32.0) mmol/L Anion Gap 17.3 BUN 15.0 (7.0-18.0) mg/dL Creatinine 1.40 H (0.70-1.30) mg/dL Est GFR ( Amer) >60 (>=60) Est GFR (Non-Af Amer) 50 L (>=60) BUN/Creatinine Ratio 10.7 Glucose 113 H (74-106) mg/dL Calcium 9.3 (8.5-10.1) mg/dL Magnesium 1.9 (1.8-2.4) mg/dL Discharge Plan Discharge Stand Alone Forms: Portal Instructions Chief Complaint: Extremity Problem, Nontraumatic Clinical Impression: Bilateral lower extremity pain Patient Disposition: Home, Self-Care Time of Disposition Decision: 17:55 Prescriptions / Home Meds: New methylprednisolone [Medrol (Pasha)] 4 mg tablets,dose pack 4 mg PO DAILY Qty: 21 0RF Rx Instructions: follow dosing instructions on package hydrocodone-acetaminophen 5-325 mg tablet 1 tab PO Q6H PRN (Reason: pain) 4 Days Qty: 14 0RF Rx Instructions: ICD 10 = M79 No Action atorvastatin 40 mg tablet 40 mg PO DAILY ezetimibe 10 mg tablet 10 mg PO QAM glipizide 5 mg tablet extended release 24hr 5 mg PO BID Soliqua 100/33 100 unit-33 mcg/mL insulin pen 42 unit SUBCUT QAM oxaprozin 600 mg tablet 600 mg PO DAILY valsartan 80 mg tablet 80 mg PO DAILY Print Language: Armenian Instructions: Leg Pain (ED) Referrals: TOMY EMMANUEL [Primary Care Provider] - 1 week
[2023-06-11] MEDS: HYDROMORPHONE HCL 1 MG/ML CARTRIDGE IVP (15:10)
[2023-06-11] MEDS: ORPHENADRINE 60 MG/ 2 ML VIAL 30 MG IV (15:11)
--- NOTE | 2023-06-11 15:52 | US_ITS ---
The [address] [address] Patient Name: ANALI KENNEDY MRN: [id number] date: 1950 Sex: M Assigned Patient Location: ER Current Patient Location: ED.MAIN Accession/Order Number: [id number] Exam Date: 06/11/2023 16:55 Report Date: 06/11/2023 18:03 At the request of: LOLY MCCLOUD Procedure: US venous doppler LE BI ULTRASOUND OF THE LOWER EXTREMITY VENOUS BILATERAL HISTORY: Edema and pain. COMPARISON: None. TECHNIQUE: US with martinez scale and color doppler of extremity veins. Doppler spectral analysis and color flow were performed. FINDINGS: Right: There is no evidence of thrombus within the visualized veins. There is adequate phasic and spontaneous flow. There is adequate compression. There is adequate augmentation. No evidence of DVT within the visualized veins. Left: There is no evidence of thrombus within the visualized veins. There is adequate phasic and spontaneous flow. There is adequate compression. There is adequate augmentation. No evidence of DVT within the visualized veins. Superficial veins within the subcutaneous skin did not demonstrate compression. Popliteal fluid collections: US/US venous doppler LE BI IMPRESSION: 1. No evidence of DVT within visualized veins of bilateral lower extremities. 2. Superficial thrombophlebitis within the left lower extremity subcutaneous skin. Electronically authenticated by: MAZIN WANG Date: 06/11/2023 18:03
[2023-06-11 17:08] VITALS: BP 152/77; PULSE 86; RESP 18; O2SAT 92
== END 2023-06-11 18:23 | disposition home or self-care (01) ==
PROVIDERS: Emergency Provider Emergency Medicine; PCP Family Medicine
DX: M79.605 Pain in left leg (principal); M79.604 Pain in right leg; Z79.899 Other long term (current) drug therapy; Z79.4 Long term (current) use of insulin
CPT/HCPCS: 36415; 80048; 83735; 85025; 93970; 96374; 96375; 99285; J1170; J2930

== ENCOUNTER 2023-07-02 12:26 | Outpatient (OUT) | payer MEDICARE, SELFPAY ==
--- NOTE | 2023-07-02 12:31 | MR_ITS ---
The [address] [address] Patient Name: ANALI KENNEDY MRN: [id number] date: 1950 Sex: M Assigned Patient Location: MRI Current Patient Location: Accession/Order Number: [id number] Exam Date: 07/02/2023 12:40 Report Date: 07/03/2023 16:55 At the request of: JAILENE MEJIA Procedure: MR lumbar spine wo con MR lumbar spine wo con, 07/02/2023 12:40 PM EDT INDICATION: Lumbar degenerative disc disease M51.36 COMPARISON: There is no appropriate prior study for comparison. TECHNIQUE: Multiplanar, multisequential MRI images of lumbar spine were obtained without contrast. FINDINGS: For dictation purposes, the lowest complete disc space in the lumbar spine considered as L5-S1. Renal lesions with T2 prolongation not fully characterized by this study and statistically may suggest simple renal cyst. However, there is no lesion in the superior pole of the right kidney measuring 9.2 mm with T2 shortening not fully characterized by this study. There is normal physiologic lumbar lordosis. The vertebral height is preserved. The conus medullaris is at the level of L1. No signal abnormality within the visualized spinal cord is noted. Level of T12-L1 is unremarkable. No neural foraminal narrowing or canal stenoses at the level of L1-L2 and L2-L3 is noted. At the level of L3-4, there are disc bulge with mild right and moderate left neuroforaminal narrowing and severe canal stenosis. There is significant ligamentum flavum thickening and facet joint arthrosis at this level. At the level of L4-5, there are disc bulge with superimposed right lateral disc protrusion with moderate right and mild left neuroforaminal narrowing and mild canal stenosis. At the level of L5-S1, there are disc bulge with mild bilateral neuroforaminal narrowing and no canal stenosis. Bilateral S1 nerve roots are in close contact with the disc bulge in the lateral recesses. The paraspinal muscles are unremarkable. MR/MR lumbar spine wo con IMPRESSION: Moderate degenerative changes of lumbar spine in particular at L3-4 and L4-L5. Right renal lesion suspicious for hemorrhagic cyst versus papillary cell carcinoma. An MRI or CTU is recommended for further evaluation. Electronically authenticated by: TARA Mckeon: 07/03/2023 16:55
--- OUTSIDE RECORDS SUMMARY | 2023-07-02 12:35 | XMS_ITS | CCD ---
Author Organization [facility] Care Team Providers Care Inspector [employer] Name Role Phone Humberto Emmanuel Primary Care Provider HUMBERTO EMMANUEL Primary Care Unavailable TYLER TAMEZ Admitting Unavailable TYLER TAMEZ Attending Unavailable HUMBERTO EMMANUEL Primary Care Unavailable HUMBERTO EMMANUEL Primary Care Unavailable Bryant Avlares MD Unavailable Humberto Emmanuel MD Unavailable Humberto Emmanuel MD Primary Care Provider HUMBERTO EMMANUEL Attending Unavailable CINTHIA MEJIA Attending Unavailable CINTHIA MEJIA Attending Unavailable CINTHIA MEIJA Referring Unavailable CHRISTIANO LUCERO Attending Unavailable CINTHIA MEJIA Referring Unavailable Medications Current Medications Medication Drug Class(es) [...] same time. 0 Active Continuous Blood Gluc Rn Appeals (FreeStyle Akila 2 [place]) device (1 source) Start: 022 Continuous Blood Gluc Rn Appeals (FreeStyle Akila 2 [place]) device DIRECTED DAILY 30 DAYS 0 01/15/2022 Active Continuous Blood Gluc Sensor (FreeStyle Akila 2 Sensor) [facility] (1 source) Start: Continuous Blood Gluc Sensor (FreeStyle Akila 2 Sensor) [facility] Indications: Type 2 diabetes mellitus without complications [...] release oral tablet (2 sources) Sulfonylurea Start: 023 take 5 mg by mouth every twelve [...] complication, with long-term current use of insulin ([facility]) INJECT 22 UNITS IN THE MORNING AND [...] daily 14 tablet 0 05/17/2019 Active nystatin 006875 unt/ml topical cream (1 source) Polyene Antifungal [...] Test Name Value Interpretation Reference Range Facility XR LUMBAR SPINE AP/LAT/OBLIQ UESon 06-16-2023 XR LUMBAR SPINE AP/LAT/OBLIQUES EXAMINATION: XR LUMBAR SPINE AP/LAT/OBLIQUES CLINICAL HISTORY: Possible stenosis COMPARISON: none FINDINGS 5 views lumbar spine are submitted. There 5 lumbar-type vertebrae. There is multilevel degenerative changes posterior facets lower lumbar spine. There is anterior spondylosis. There is narrowing of the T12-L1, and L1 5-S1 disc bases. No significant thesis. No spondylolysis. SI joints are intact. No acute fracture IMPRESSION: MULTILEVEL OSTEOARTHRITIS LUMBAR SPINE. NO ACUTE FRACTURE ELECTRONICALLY SIGNED BY: César Perry MD Normal Not Available Complete Blood Count with Au to Diffon 07-22-2021 Basophils (Bld) [#/Vol] 0.04 10*3/uL Normal 0.00-0.20 [facility] Comment on above: Performed By: #### C MP LIPD, CBCAD #### [facility] [address] [place], [place] [id number] Basophils/100 WBC (Bld) 0.8 % Normal [facility] Comment on above: Performed By: #### C JENNY LIPD, CBCAD #### [facility] [address] [place], [place] [id number] Eosinophils (Bld) [#/Vol] 0.20 10*3/uL Normal 0.02-0.50 [facility] Comment on above: Performed By: #### C JENNY LIPD, CBCAD #### [facility] [address] [place], [place] [id number] Eosinophils/100 WBC (Bld) 4.2 % Normal [facility] Comment on above: Performed By: #### C JENNY LIPD, CBCAD #### [facility] [address] [place], [place] [id number] Erythrocyte distribution width (RBC) [Ratio] 13.5 % Normal 11.0-15.0 [facility] Comment on above: Performed By: #### C JENNY LIPD, CBCAD #### [facility] [address] [place], [place] [id number] Hematocrit (Bld) [Volume fraction] 49.3 % Normal 38.5-50.0 [facility] Comment on above: Performed By: #### C JENNY LIPD, CBCAD #### [facility] [address] [place], [place] [id number] Hemoglobin (Bld) [Mass/Vol] 16.2 g/dL Normal 13.0-17.1 [facility] Comment on above: Performed By: #### C MP, LIPD, CBCAD #### [facility] [address] [place], [place] [id number] Lymphocytes (Bld) [#/Vol] 1.4 10*3/uL Normal 0.9-3.9 [facility] Comment on above: Performed By: #### C MP, LIPD, CBCAD #### [facility] [address] [place], [place] [id number] Lymphocytes/100 WBC (Bld) 30.3 % Normal [facility] Comment on above: Performed By: #### C MP, LIPD, CBCAD #### [facility] [address] [place], [place] [id number] MCH (RBC) [Entitic mass] 29.2 pg Normal 27.0-33.0 [facility] Comment on above: Performed By: #### C MP, LIPD, CBCAD #### [facility] [address] [place], [place] [id number] MCHC (RBC) [Mass/Vol] 32.9 g/dL Normal 32.0-36.0 [facility] Comment on above: Performed By: #### C MP, LIPD, CBCAD #### [facility] [address] [place], [place] [id number] MCV (RBC) [Entitic vol] 89 fL Normal 80-100 [facility] Comment on above: Performed By: #### C MP, LIPD, CBCAD #### [facility] [address] [place], [place] [id number] Monocytes (Bld) [#/Vol] 0.3 10*3/uL Normal 0.2-0.9 [facility] Comment on above: Performed By: #### C MP, LIPD, CBCAD #### [facility] [address] [place], [place] [id number] Monocytes/100 WBC (Bld) 6.3 % Normal [facility] Comment on above: Performed By: #### C MP, LIPD, CBCAD #### [facility] [address] [place], [place] [id number] Neutrophils (Bld) [#/Vol] 2.8 10*3/uL Normal 1.5-7.8 [facility] Comment on above: Performed By: #### C MP, LIPD, CBCAD #### [facility] [address] [place], [place] [id number] Neutrophils/100 WBC (Bld) 58.0 % Normal [facility] Comment on above: Performed By: #### C MP, LIPD, CBCAD #### [facility] [address] [place], [place] [id number] Platelet mean volume (Bld) [Entitic vol] 10.60 fL Normal 7.50-12.50 [facility] Comment on above: Performed By: #### C MP, LIPD, CBCAD #### [facility] [address] [place], [place] [id number] Platelets (Bld) [#/Vol] 135 10*3/uL Low 140-400 [facility] Comment on above: Performed By: #### C MP, LIPD, CBCAD #### [facility] [address] [place], [place] [id number] RBC (Bld) [#/Vol] 5.55 10*6/uL Normal 4.20-5.80 [facility] Comment on above: Performed By: #### C MP, LIPD, CBCAD #### [facility] [address] [place], [place] [id number] RDW-SD 44.0 fL Normal 37.0-50.0 [facility] Comment on above: Performed By: #### C MP, LIPD, CBCAD #### [facility] [address] [place], [place] [id number] WBC (Bld) [#/Vol] 4.8 10*3/uL Normal 3.8-11.0 [facility] [employer] Comment on above: Performed By: #### C MP, LIPD, CBCAD #### [facility] [address] [place], [place] [id number] Comprehensive Metabolic [facility] 07-22-2021 Albumin [Mass/Vol] 4.6 g/dL Normal 3.6-5.1 [facility] [employer] Comment on above: Performed By: #### C MP, LIPD, CBCAD #### [facility] [address] [place], [place] [id number] Albumin/Globulin [Mass ratio] 1.9 {ratio} Normal 1.0-2.5 [facility] Comment on above: Performed By: #### C SAKSHI ALVARADOD, CBCAD #### [facility] [address] [place], [place] [id number] ALP [Catalytic activity/Vol] 116 U/L Normal 40-129 [facility] Comment on above: Performed By: #### C JENNY, LIPD, CBCAD #### [facility] [address] [place], [place] [id number] ALT [Catalytic activity/Vol] 31 U/L Normal 9-46 [facility] Comment on above: Result Comment: 02/19 Female reference range changed. Performed By: #### C SAKSHI ALVARADOD, CBCAD #### [facility] [address] [place], [place] [id number] Anion gap [Moles/Vol] 17 mmol/L Normal 12-20 [facility] Comment on above: Result Comment: Effe ctive 03/27/2019 reference range changed. Performed By: #### C JENNY LIPD, CBCAD #### [facility] [address] [place], [place] [id number] AST [Catalytic activity/Vol] 28 U/L Normal 10-40 [facility] Comment on above: Performed By: #### C SAKSHI ALVARADOD, CBCAD #### [facility] [address] [place], [place] [id number] Bilirubin [Mass/Vol] 0.65 mg/dL Normal 0.30-1.20 [facility] Comment on above: Performed By: #### C JENNY LIPD, CBCAD #### [facility] [address] [place], [place] [id number] BUN/CREA 16 Ratio Normal 6-22 [facility] Comment on above: Performed By: #### C JENNY LIPD, CBCAD #### [facility] [address] [facility] [place] [id number] Calcium [Mass/Vol] 9.8 mg/dL Normal 8.6-10.2 [facility] Comment on above: Performed By: #### C NEYDA ALVARADO, CBCAD #### [facility] [address] [facility] [place] [id number] Chloride [Moles/Vol] 105 mmol/L Normal 98-107 [facility] Comment on above: Performed By: #### C SAKSHI ALVARADOD, CBCAD #### [facility] [address] [facility] [place] [id number] CO2 [Moles/Vol] 21 mmol/L Normal 20-31 [facility] Comment on above: Performed By: #### C NEYDA ALVARADO, CBCAD #### [facility] [address] [facility] [place] [id number] Creatinine [Mass/Vol] 1.1 mg/dL Normal 0.7-1.4 [facility] Comment on above: Performed By: #### C NEYDA ALVARADO, CBCAD #### [facility] [address] [place], [place] [id number] eGFRAA 83 mL/min/1.73m2 Normal >60 [facility] Comment on above: Performed By: #### C NEYDA ALVARADO, CBCAD #### [facility] [address] [facility] [place] [id number] eGFRNAA 68 mL/min/1.73m2 Normal >60 [facility] Comment on above: Performed By: #### C NEYDA ALVARADO, CBCAD #### [facility] [address] [place], [place] [id number] Globulin (S) [Mass/Vol] 2.4 g/dL Normal 1.9-3.7 [facility] Comment on above: Performed By: #### C NEYDA ALVARADO, CBCAD #### [facility] [address] [place], [place] [id number] Glucose [Mass/Vol] 143 mg/dL High 65-99 [facility] Comment on above: Result Comment: For FASTING Glucose --- ADA reference ranges: Normal 65-99 mg/dl Prediabetes 100-125 Diabetes >/= 126 Performed By: #### C SAKSHI ALVARADOD, CBCAD #### [facility] [address] [facility] [place] [id number] Potassium [Moles/Vol] 4.3 mmol/L Normal 3.5-5.5 [facility] [employer] Comment on above: Performed By: #### C MP, LIPD, CBCAD #### [facility] [address] [place], [place] [id number] Protein [Mass/Vol] 7.0 g/dL Normal 6.1-8.1 [facility] [place] [employer] Comment on above: Performed By: #### C MP, LIPD, CBCAD #### [facility] [address] [place], [place] [id number] Sodium [Moles/Vol] 139 mmol/L Normal 135-146 [facility] [employer] Comment on above: Performed By: #### C MP, LIPD, CBCAD #### [facility] [address] [place], [place] [id number] Urea nitrogen [Mass/Vol] 17 mg/dL Normal 7-25 [facility] [employer] Comment on above: Performed By: #### C MP, LIPD, CBCAD #### [facility] [address] [place], [place] [id number] Lipid Panelon 07-22-2021 Cholesterol [Mass/Vol] 203 mg/dL High 125-200 [facility] [employer] Comment on above: Result Comment: Low risk < 200mg/dL Borderline risk 201-239 mg/dl High risk > or equal to 240 Performed By: #### C MP, LIPD, CBCAD #### [facility] [address] [place], [place] [id number] Cholesterol in HDL [Mass/Vol] 41 mg/dL Normal >40 [facility] [employer] Comment on above: Result Comment: High Cardiovascular Risk HDL <40 mg/dL Low Cardiovascular Risk HDL > or equal to 60 mg/dl Performed By: #### C MP, LIPD, CBCAD #### [facility] [address] [place], [place] [id number] Cholesterol in LDL [Mass/Vol] 82 mg/dL Normal [facility] [employer] Comment on above: Result Comment: LDL ATP III CLASSIFICATION LDL less than 100 mg/dl Optimal LDL 100-129 mg/dl Near or above optimal LDL 130-159 Borderline high LDL 160-189 High LDL greater than 189 mg/dl Very High Performed By: #### C MP, LIPD, CBCAD #### [facility] [address] [place], [place] [id number] Cholesterol in VLDL [Mass/Vol] 80 mg/dL Normal [facility] Comment on above: Performed By: #### C JENNY, SAKSHID, CBCAD #### [facility] [address] [place], [place] [id number] Cholesterol.total/C holesterol in HDL [Mass ratio] 5 {ratio} Normal [facility] [employer] Comment on above: Performed By: #### C JENNY, LIPD, CBCAD #### [facility] [address] [place], [place] [id number] Triglyceride [Mass/Vol] 399 mg/dL High 30-150 [facility] [employer] Comment on above: Result Comment: TRIG ATPIII CLASSIFICATIONS TRIG less than 150 mg/dl Normal TRIG 150-199 mg/dl Borderline High TRIG 200-500 mg/dl High TRIG greather than 500 mg/dl Very High Performed By: #### C JENNY, LIPD, CBCAD #### [facility] [address] [place], [place] [id number] PSA SCREEN (MEDICARE)on TPSA 0.942 ng/mL Normal <4.000 [facility] [employer] Comment on above: Result Comment: PSA Test Method: ECLIA/Natalia e 601 Performed By: #### P SA #### [facility] [address] [place], [place] [id number] XR RIBS LEFT INCLUDE CHEST ( MIN [...] Angel Ha MD 05/17/19 Final result Normal [facility] No discrete left rib fracture. No radiographic evidence of acute cardiopulmonary disease. Pulmonary sequela typical of that seen with smoking (passive or active), including possible COPD; correlate with clinical history. Bone scan correlation may be considered if pain persists or worsens, or if clinically there is concern for underlying radiographically occult process. [facility] [place] [facility]: 3 XRAY VIEWS OF THE LEFT [...] No rib lesion or fracture is seen[facility] [place] [place] Rob, [facility] Incoming Radiant Results From [employer] - 05/17/2019 7:10 PM EST EXAMINATION: 3 [...] is concern for underlying radiographically occult process. [place] Vital Signs Date Time Vital Sign Value Performing Clinician Faci lity 05-17-2019 18:34-0500 BP Diastolic 69 mm[Hg] [place], [place] 05-17-2019 18:34-0500 BP Systolic 131 mm[Hg] [place] 05-17-2019 18:34-0500 Pulse (Heart Rate) 81 /min [place] 05-17-2019 18:34-0500 Respiratory Rate 20 /min [place], [place] 05-17-2019 18:16-0500 BMI (Body Mass Index) 38.4 kg/m2 [place], [place] 05-17-2019 18:16-0500 Body Temperature 97.9 [degF] [place] 05-17-2019 18:16-0500 Body weight 117.94 kg [place], [place] 05-17-2019 18:16-0500 Pulse Oximetry 96 % [place] Encounters Encounter Date Encounter Type Care Provider Facility Start: 06-17-2023 End: 06-17-2023 ambulatory CHRISTIANO LUCERO Not Available Start: 06-16-2023 End: 06-17-2023 ambulatory CINTHIA MEJIA Not Available Start: 06-15-2023 End: 06-15-2023 ambulatory CINTHIA M HEMMER Not Available Start: 04-26-2023 End: 04-26-2023 ambulatory CINTHIA Obrien HEMMER Not Available Start: 04-26-2023 Chart abstracting Cinthia Salcedo er PA Work Phone: [facility] Start: 04-12-2023 End: 04-12-2023 ambulatory HUMBERTO Obrien CHOLO Not Available Start: 08-12-2020 End: 08-12-2020 General Kandi Hoyng PharmD Work Phone: [facility] Work Phone: Start: 05-17-2019 End: 05-17-2019 Emergency department patient visit [facility] Start: 05-17-2019 End: 05-17-2019 Emergency department patient visit [facility] ED Comment on above: Muscle strain of erick st wall, initial encounter (Primary Dx) Start: 08-26-2018 End: 08-26-2018 Emergency department patient visit [facility] Start: 08-03-2018 End: 08-03-2018 Patient encounter procedure [facility] Procedures Date Procedure Procedure Detail Performing Clinician Start: 08-12-2020 Imm. administration COVID19 [employer] Mitch Kandi Hoyng PharmD Work Phone: Start: 08-12-2020 SARS-CoV-2 vaccine, 0.5ml [employer] Mitch Kandi Hoyng PharmD Work Phone: Start: 05-17-2019 Radex ribs uni w/pos teroant ch minimum 3 views RUGEN CHOLO Start: 05-17-2019 Radex ribs uni w/pos teroant ch minimum 3 views Jamel Del Toro Work Phone: Start: 08-03-2018 DIET GENERAL RUGEN CHOLO Start: 08-03-2018 MISCELLANEOUS NURSIN G CARE ORDER (SPECIFY) RUGEN CHOLO Start: 08-03-2018 REMOVE IV RUGEN CHOLO Start: 08-03-2018 VITAL SIGNS RUGEN CHOLO Start: 08-03-2018 DISCHARGE PATIENT RUGEN CHOLO Start: 08-03-2018 INSERT PERIPHERAL IV RU GEN CHOLO Start: 08-03-2018 Colonoscopy Cinthia AVILES Work Phone: Plan of Treatment Date Care Activity Detail Author Start: 08-03-2028 Colon cancer screen colonoscopy Colon cancer screen colonoscopy [place] Start: 08-03-2028 Screening for malign ant neoplasm of colon [facility] Start: 05-01-2024 Glaucoma screening Diabetes: R etinopathy Screening [facility] Start: 01-09-2024 Pneumococcal Vaccine : 65+ Years (2 - PCV) Pneumococcal Vaccine: 65+ Years (2 - PCV) [facility] Comment on above: Postponed from 03/12 (Patient Refused) Start: 10-11-2023 End: 10-11-2023 Patient encounter procedure 10/11/2023 1:00 PM EDT Office Visit [facility] [address] [facility] [address] [place] [address] Humberto Emmanuel MD [address] [facility] [address] [place] [address] [facility] Start: 07-12-2023 Hemoglobin A1c measurement Diabetes: Hemoglobin A1C [facility] Start: 06-23-2023 Medicare Annual Wellness (AWV) Medicare Annual Wellness (AWV) [facility] Start: 04-26-2023 End: 04-26-2023 Patient encounter procedure 04/26/2023 1:30 PM EST Office Visit [facility] [address] [facility] [address] [place] [address] Cinthia Mejia PA [address] [facility] [address] [place] [address] [facility] Start: 11-20-2018 Influenza vaccination Flu vaccine (# 1) [place] Start: 09-11-2018 Annual Wellness Visi t (AWV) Annual Wellness Visit (AWV) [place] Start: 2016 Pneumococcal 65+ yea rs Vaccine (1 of 1 - PPSV23) Pneumococcal 65+ years Vaccine (1 of 1 - PPSV23) [place] Start: 02-21-2015 Creatinine monitoring Creatinine mon itoring [place] Start: 02-21-2015 Lipid screen Lipid screen [place], [place] Start: 02-21-2015 Potassium monitoring Potassium monit oring [place] Start: 2001 Shingles Vaccine (1 of 2) Shingles Vaccine (1 of 2) [place], [place] Start: 1962 DTaP/Tdap/Td vaccine (1 - Tdap) DTaP/Tdap/Td vaccine (1 - Tdap) [place], [place] Start: 1950 AAA screen AAA screen [place], [place] Start: 1950 Hepatitis C screen Hepatitis C scree n [place], [place] Start: 1950 Screening for malign ant neoplasm of colon [facility] Immunizations Immunization Date Immunization Notes Care Provider [facility] 01-12-2023 Influenza, High-dose Seasonal, Quadrivalent, Preservative Free Cinthia Hemmer PA Work Phone: [facility] 01-15-2022 influenza, high dose seasonal, preservative-free Cinthia Hemmer PA Work Phone: [facility] 01-20-2021 influenza, high dose seasonal, preservative-free Cinthia Hemmer PA Work Phone: [facility] 08-12-2020 Mitch and Mitch COVID 19 Vaccine; Translations: [Annette] Bryant Alvares MD Work Phone: [facility] Work Phone: Comment on above: Note: Patient tolera arielle well. No signs or symptoms of adverse reactions. Patient waited a minimum of 15 minutes. 12-19-2019 influenza, high dose seasonal, preservative-free Cinthia Hemmer PA Work Phone: [facility] 12-19-2019 Influenza, High-dose Seasonal, Quadrivalent, Preservative Free Cinthia Hemmer PA Work Phone: [facility] 02-09-2019 influenza, high dose seasonal, preservative-free Cinthia Hemmer PA Work Phone: [facility] 02-09-2019 Influenza, High-dose Seasonal, Quadrivalent, Preservative Free Cinthia Hemmer PA Work Phone: [facility] 03-18-2017 influenza, injectabl e, quadrivalent, contains preservative Cinthia Hemmer PA Work Phone: [facility] 03-18-2017 influenza, injectabl e, quadrivalent, preservative free Cinthia Hemmer PA Work Phone: [facility] 03-12-2017 pneumococcal polysaccharide vaccine, 23 valent Cinthia Hemmer PA Work Phone: [facility] 12-26-2015 influenza, injectabl e, quadrivalent, contains preservative Cinthia Hemmer PA Work Phone: [facility] 12-26-2015 influenza, injectabl e, quadrivalent, preservative free Cinthia Hemmer PA Work Phone: [facility] Payers Date Payer Category Payer Medicare [employer]M MEDICARE ADVANTAGE [facility] MEDICARE ADVANTAGE [id number] 2022-Present [address] [place] [address] [id number] 2019 Medicare BCBS MEDICARE AN THEM MEDIBLUE ESSENTIAL/PLUS xxxxxxxxxxxx 2019-Present [address] [address] [place] [address] xxxxxxxxxxxx [id number] 2019 Medicare [id number] 2017 Medicare [id number] 1950 Unknown [id number] 1950 Unknown [id number] 1950 Unknown [id number] 1950 Unknown [id number] 9 1950 Unknown [id number] 9 1950 Unknown [id number] 9 1950 Unknown [id number] 9 1950 Unknown [id number] 9 Social History Date Type Detail Facility Start: 05-17-2019 Tobacco smoking stat [facility] Former smoker [place], [place] End: 07-06-1992 History of tobacco use Current smoker [place] Start: 05-17-2019 End: 04-26-2023 Alcohol intake Current drinker of alcohol (finding) [place] Start: 08-03-2018 Alcohol Comment SOCIAL [place], [place] Start: 1950 Sex Assigned At Not on file [place], [place] Tobacco smoking status Unknown if ever sm [facility] [facility] Work Phone: Start: 08-24-2022 Tobacco smoking stat [facility] Never smoked tobacco [facility] Start: 08-24-2022 Tobacco use and exposure Smokeless tobacco non-user [facility] Start: 04-12-2023 History of Social function [facility] Start: 04-12-2023 Tobacco use panel [facility] Start: 04-12-2023 Alcohol Comment Points: 2, Interpretation: Negative; Caffeine Intake: 3-4 cups per day [facility] Medical Equipment Procedure Code Equipment Code Equipment Origin al Text Equipment Identifier Dates USE DIRECTED TWICE A DAY [id number] Start: 07-16-2022 USE DIRECTED TO INJECT INTO THE SKIN TWICE DAILY [id number] Start: 03-26-2022 1 strip by In Vi tro route in the morning. [id number] Start: 02-04-2023 1 Device in the morning. [id number] Start: 02-04-2023 Evaluation note Note Date & Type Note Facility Evaluation note Includes: Assessments for all patient encounters Findings Encounter for Immunization 1st COVID Vac cine with Kandi Sol PharmD 08/12/2020 [facility] Work Phone: History general Narrative - Reported Note Date & Type Note Facility History general Narrative - Reported Includes: Medical History in patient's chartNo Medical History Recorded [facility] Work Phone: History of Present illness Narrative Note Date & Type Note Facility History of Present illness Narrative History of Present Illness not supported for this document typeNo History of Present Illness Recorded [facility] Work Phone: Instructions Note Date & Type Note Facility Instructions Instructions not supported for this document typeNo Instructions Recorded [facility] Work Phone: Patient problem outcome Narrative Note Date & Type Note Facility Patient problem outcome Narrative Includes: Evaluations & Outcomes for active GoalsNo Outcomes Recorded [facility] Work Phone: Reason for referral (narrative) Note Date & Type Note Facility Reason for referral (narrative) No Reason for Referral Recorded [facility] Work Phone: Review of systems Narrative - Reported Note Date & Type Note Facility Review of systems Narrative - Reported Review of Systems not supported for this document typeNo Review of Systems Recorded [facility] Work Phone: Discharge Instructions * Instructions* Jamel Del Toro II, PA-C - 05/17/2019 Return to the emergency department anytime should become short of breath develop a fever or have worsening pain. * Attachments The following attachments cannot be sent through Care Everywhere. 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 Pt states he was coughing [place] and felt something go poof in his left rib cage (unrecognized sect ion and content) No Status Records FoundNo Status Records FoundNo Status Records Found INFORMATION SOURCE (unrecogn ized section and content) DATE CREATED AUTHOR 05/18/2019 [facility] DATE CREATED AUTHOR AUTHOR'S ORGANIZ ATION 07/24/2021 [facility] dical Specialist DATE CREATED AUTHOR AUTHOR'S ORGANIZ ATION 06/20/2023 [facility] dical Specialists EPIC Care Teams (unrecognized sec tion and content) [employer] Relationship Specialty Start Date End Date Humberto Emmanuel MD [address] [facility] [address] [place] [address] PCP - Benito GRIGGS 03/22/21 Humberto Emmanuel MD [address] [facility] [address] [place] [address] PCP - General Family Medicine 08/20/22 FOR [...] BE BASED ON THE PRIMARY CLINICAL RECORDS. [facility] [employer] [facility]. provides no warranty or guarantee of the accuracy or completeness of information in this document.
== END 2023-07-02 12:27 | disposition home or self-care (01) ==
LOC: MRI 12:26
PROVIDERS: PCP Family Medicine; Visit Provider Physician Assistant
DX: M51.36 Other intervertebral disc degeneration, lumbar region (principal); M47.816 Spondylosis without myelopathy or radiculopathy, lumbar region; M79.604 Pain in right leg; M79.605 Pain in left leg
CPT/HCPCS: 72148

== ENCOUNTER 2023-07-07 08:41 | Outpatient (OUT) | payer MEDICARE, SELFPAY ==
--- NOTE | 2023-07-07 08:45 | MR_ITS ---
[address] [address] Patient Name: ANALI KENNEDY MRN: [id number] date: 1950 Sex: M Assigned Patient Location: MRI Current Patient Location: Accession/Order Number: [id number] Exam Date: 07/07/2023 08:50 Report Date: 07/10/2023 16:31 At the request of: JAILENE MEJIA Procedure: MR abdomen wo/w con EXAM: MR abdomen wo/w con HISTORY: Right Kidney Mass N28.89 COMPARISON: Lumbar spine MRI 07/02/2023. TECHNIQUE: Images were acquired with and without intravenous contrast through the abdomen. The following MR images were acquired: TrueFISP, multiplanar T2 weighted, axial T1 in/out of phase, axial fat-saturated T1, diffusion-weighted. Multiplanar T1-weighted images with fat saturation were before contrast administration and at multiple time points following the administration of intravenous contrast. Contrast dose: 20 mL Dotarem FINDINGS: Liver: Partially visualized liver is unremarkable Gallbladder: Unremarkable Spleen: Unremarkable Kidneys: Redemonstrated hypointense lesion on T2 in the superior right kidney, which is homogeneously bright on T1-weighted images, and there is no enhancing mass visualized at this site. Additional, scattered small T2 hyperintense cyst, are also favored benign. No hydronephrosis. Adrenal glands: Unremarkable Pancreas: Unremarkable Bowel: No abnormally dilated bowel Lymph nodes: Unremarkable Blood vessels: Patent major vessels. Otherwise unremarkable MR/MR abdomen wo/w con IMPRESSION: 1. The lesion in the superior right kidney in question, is homogeneously bright on T1 WI, without evidence for enhancing lesion, compatible with a hemorrhagic/proteinaceous cyst. Otherwise no suspicious renal masses. Electronically authenticated by: TASHA MONET Date: 07/10/2023 16:31
--- OUTSIDE RECORDS SUMMARY | 2023-07-07 08:46 | XMS_ITS | CCD ---
Author Organization [facility] Care Team Providers Care Insurance Biller Name Role Phone Humberto Emmanuel Primary Care Provider HUMBERTO EMMANUEL Primary Care Unavailable TYLER TAMEZ Admitting Unavailable TYLER TAMEZ Attending Unavailable HUMBERTO EMMANUEL Primary Care Unavailable HUMBERTO EMMANUEL Primary Care Unavailable Bryant Alvares MD Unavailable Humberto Emmanuel MD Unavailable Humberto Emmanuel MD Primary Care Provider [phone] HUMBERTO EMMANUEL Attending Unavailable CINTHIA MEJIA Attending Unavailable CINTHIA MEJIA Attending Unavailable CINTHIA MEJIA Referring Unavailable CHRISTIANO LUCERO Attending Unavailable CINTHIA [...] same time. 0 Active Continuous Blood Gluc Bench Assembler Battery (FreeStyle Akila 2 Brooks) device (1 source) Start: 022 Continuous Blood Gluc Bench Assembler Battery (FreeStyle Akila 2 Brooks) device DIRECTED DAILY 30 DAYS 0 01/15/2022 Active Continuous Blood Gluc Sensor (FreeStyle Akila 2 Sensor) [facility] (1 source) Start: Continuous Blood Gluc Sensor (FreeStyle Akila 2 Sensor) [facility] Indications: Type 2 diabetes mellitus without complications [...] complication, with long-term current use of insulin ([facility]) INJECT 22 UNITS IN THE MORNING AND [...] daily 14 tablet 0 05/17/2019 Active nystatin [id number] unt/ml topical cream (1 source) Polyene Antifungal [...] Basophils (Bld) [#/Vol] 0.04 10*3/uL Normal 0.00-0.20 [facility] Comment on above: Performed By: #### C MP LIPD, CBCAD #### [facility] [address], [place] [id number] Basophils/100 WBC (Bld) 0.8 % Normal [facility] Comment on above: Performed By: #### C JENNY LIPD, CBCAD #### [facility] [address], [place] [id number] Eosinophils (Bld) [#/Vol] 0.20 10*3/uL Normal 0.02-0.50 [facility] Comment on above: Performed By: #### C JENNY LIPD, CBCAD #### [facility] [address], [place] [id number] Eosinophils/100 WBC (Bld) 4.2 % Normal [facility] Comment on above: Performed By: #### C JENNY LIPD, CBCAD #### [facility] [address], [place] [id number] Erythrocyte distribution width (RBC) [Ratio] 13.5 % Normal 11.0-15.0 [facility] Comment on above: Performed By: #### C JENNY LIPD, CBCAD #### [facility] [address], [place] [id number] Hematocrit (Bld) [Volume fraction] 49.3 % Normal 38.5-50.0 [facility] Comment on above: Performed By: #### C JENNY LIPD, CBCAD #### [facility] [address], [place] [id number] Hemoglobin (Bld) [Mass/Vol] 16.2 g/dL Normal 13.0-17.1 [facility] Comment on above: Performed By: #### C MP, LIPD, CBCAD #### [facility] [address], [place] [id number] Lymphocytes (Bld) [#/Vol] 1.4 10*3/uL Normal 0.9-3.9 [facility] Comment on above: Performed By: #### C MP, LIPD, CBCAD #### [facility] [address], [place] [id number] Lymphocytes/100 WBC (Bld) 30.3 % Normal [facility] Comment on above: Performed By: #### C MP, LIPD, CBCAD #### [facility] [address], [place] [id number] MCH (RBC) [Entitic mass] 29.2 pg Normal 27.0-33.0 [facility] Comment on above: Performed By: #### C MP, LIPD, CBCAD #### [facility] [address], [place] [id number] MCHC (RBC) [Mass/Vol] 32.9 g/dL Normal 32.0-36.0 [facility] Comment on above: Performed By: #### C MP, LIPD, CBCAD #### [facility] [address], [place] [id number] MCV (RBC) [Entitic vol] 89 fL Normal 80-100 [facility] Comment on above: Performed By: #### C MP, LIPD, CBCAD #### [facility] [address], [place] [id number] Monocytes (Bld) [#/Vol] 0.3 10*3/uL Normal 0.2-0.9 [facility] Comment on above: Performed By: #### C MP, LIPD, CBCAD #### [facility] [address], [place] [id number] Monocytes/100 WBC (Bld) 6.3 % Normal [facility] Comment on above: Performed By: #### C MP, LIPD, CBCAD #### [facility] [address], [place] [id number] Neutrophils (Bld) [#/Vol] 2.8 10*3/uL Normal 1.5-7.8 [facility] Comment on above: Performed By: #### C MP, LIPD, CBCAD #### [facility] [address], [place] [id number] Neutrophils/100 WBC (Bld) 58.0 % Normal [facility] Comment on above: Performed By: #### C MP, LIPD, CBCAD #### [facility] [address], [place] [id number] Platelet mean volume (Bld) [Entitic vol] 10.60 fL Normal 7.50-12.50 [facility] Comment on above: Performed By: #### C MP, LIPD, CBCAD #### [facility] [address], [place] [id number] Platelets (Bld) [#/Vol] 135 10*3/uL Low 140-400 [facility] Comment on above: Performed By: #### C MP, LIPD, CBCAD #### [facility] [address], [place] [id number] RBC (Bld) [#/Vol] 5.55 10*6/uL Normal 4.20-5.80 [facility] Comment on above: Performed By: #### C MP, LIPD, CBCAD #### [facility] [address], [place] [id number] RDW-SD 44.0 fL Normal 37.0-50.0 [facility] Comment on above: Performed By: #### C MP, LIPD, CBCAD #### [facility] [address], [place] [id number] WBC (Bld) [#/Vol] 4.8 10*3/uL Normal 3.8-11.0 [facility] Comment on above: Performed By: #### C MP, LIPD, CBCAD #### [facility] [address], [place] [id number] Comprehensive Metabolic Pane [facility] 07-22-2021 Albumin [Mass/Vol] 4.6 g/dL Normal 3.6-5.1 [facility] Comment on above: Performed By: #### C MP, LIPD, CBCAD #### [facility] [address], [place] [id number] Albumin/Globulin [Mass ratio] 1.9 {ratio} Normal 1.0-2.5 [facility] Comment on above: Performed By: #### C SAKSHI ALVARADOD, CBCAD #### [facility] [address], [place] [id number] ALP [Catalytic activity/Vol] 116 U/L Normal 40-129 [facility] Comment on above: Performed By: #### C JENNY, LIPD, CBCAD #### [facility] [address], [place] [id number] ALT [Catalytic activity/Vol] 31 U/L Normal 9-46 [facility] Comment on above: Result Comment: 02/19 Female reference range changed. Performed By: #### C SAKSHI ALVARADOD, CBCAD #### [facility] [address], [place] [id number] Anion gap [Moles/Vol] 17 mmol/L Normal 12-20 [facility] Comment on above: Result Comment: Effe ctive 03/27/2019 reference range changed. Performed By: #### C JENNY LIPD, CBCAD #### [facility] [address], [place] [id number] AST [Catalytic activity/Vol] 28 U/L Normal 10-40 [facility] Comment on above: Performed By: #### C SAKSHI ALVARADOD, CBCAD #### [facility] [address], [place] [id number] Bilirubin [Mass/Vol] 0.65 mg/dL Normal 0.30-1.20 [facility] Comment on above: Performed By: #### C JENNY LIPD, CBCAD #### [facility] [address], [place] [id number] BUN/CREA 16 Ratio Normal 6-22 [facility] Comment on above: Performed By: #### C JENNY LIPD, CBCAD #### [facility] [address] [facility] [place] [place] [id number] Calcium [Mass/Vol] 9.8 mg/dL Normal 8.6-10.2 [facility] Comment on above: Performed By: #### C NEYDA ALVARADO, CBCAD #### [facility] [address] [facility] [place] [place] [id number] Chloride [Moles/Vol] 105 mmol/L Normal 98-107 [facility] Comment on above: Performed By: #### C SAKSHI ALVARADOD, CBCAD #### [facility] [address] [facility] [place] [id number] CO2 [Moles/Vol] 21 mmol/L Normal 20-31 [facility] Comment on above: Performed By: #### C NEYDA ALVARADO, CBCAD #### [facility] [address] [facility] [place] [place] [id number] Creatinine [Mass/Vol] 1.1 mg/dL Normal 0.7-1.4 [facility] Comment on above: Performed By: #### C NEYDA ALVARADO, CBCAD #### [facility] [address], [place] [id number] eGFRAA 83 mL/min/1.73m2 Normal >60 [facility] Comment on above: Performed By: #### C NEYDA ALVARADO, CBCAD #### [facility] [address] [facility] [place] [id number] eGFRNAA 68 mL/min/1.73m2 Normal >60 [facility] Comment on above: Performed By: #### C NEYDA ALVARADO, CBCAD #### [facility] [address], [place] [id number] Globulin (S) [Mass/Vol] 2.4 g/dL Normal 1.9-3.7 [facility] Comment on above: Performed By: #### C NEYDA ALVARADO, CBCAD #### [facility] [address], [place] [id number] Glucose [Mass/Vol] 143 mg/dL High 65-99 [facility] Comment on above: Result Comment: For FASTING Glucose --- ADA reference ranges: Normal 65-99 mg/dl Prediabetes 100-125 Diabetes >/= 126 Performed By: #### C SAKSHI ALVARADOD, CBCAD #### [facility] [address] [facility] [place] [place] [id number] Potassium [Moles/Vol] 4.3 mmol/L Normal 3.5-5.5 [facility] Comment on above: Performed By: #### C MP, LIPD, CBCAD #### [facility] [address], [place] [id number] Protein [Mass/Vol] 7.0 g/dL Normal 6.1-8.1 [facility] [place] [facility] Comment on above: Performed By: #### C MP, LIPD, CBCAD #### [facility] [address], [place] [id number] Sodium [Moles/Vol] 139 mmol/L Normal 135-146 [facility] Professional Comment on above: Performed By: #### C MP, LIPD, CBCAD #### [facility] [address], [place] [id number] Urea nitrogen [Mass/Vol] 17 mg/dL Normal 7-25 [facility] Comment on above: Performed By: #### C MP, LIPD, CBCAD #### [facility] [address], [place] [id number] Lipid Panelon 07-22-2021 Cholesterol [Mass/Vol] 203 mg/dL High 125-200 [facility] Comment on above: Result Comment: Low risk < 200mg/dL Borderline risk 201-239 mg/dl High risk > or equal to 240 Performed By: #### C MP, LIPD, CBCAD #### [facility] [address], [place] [id number] Cholesterol in HDL [Mass/Vol] 41 mg/dL Normal >40 [facility] Comment on above: Result Comment: High Cardiovascular Risk HDL <40 mg/dL Low Cardiovascular Risk HDL > or equal to 60 mg/dl Performed By: #### C MP, LIPD, CBCAD #### [facility] [address], [place] [id number] Cholesterol in LDL [Mass/Vol] 82 mg/dL Normal [facility] Comment on above: Result Comment: LDL ATP III CLASSIFICATION LDL less than 100 mg/dl Optimal LDL 100-129 mg/dl Near or above optimal LDL 130-159 Borderline high LDL 160-189 High LDL greater than 189 mg/dl Very High Performed By: #### C MP, LIPD, CBCAD #### [facility] [address] [place], [place] [id number] Cholesterol in VLDL [Mass/Vol] 80 mg/dL Normal [facility] Comment on above: Performed By: #### C JENNY, SAKSHID, CBCAD #### [facility] [address], [place] [id number] Cholesterol.total/C holesterol in HDL [Mass ratio] 5 {ratio} Normal [facility] Comment on above: Performed By: #### C JENNY, LIPD, CBCAD #### [facility] [address], [place] [id number] Triglyceride [Mass/Vol] 399 mg/dL High 30-150 [facility] Comment on above: Result Comment: TRIG ATPIII CLASSIFICATIONS TRIG less than 150 mg/dl Normal TRIG 150-199 mg/dl Borderline High TRIG 200-500 mg/dl High TRIG greather than 500 mg/dl Very High Performed By: #### C JENNY, LIPD, CBCAD #### [facility] [address], [place] [id number] PSA SCREEN (MEDICARE)on TPSA 0.942 ng/mL Normal <4.000 [facility] Comment on above: Result Comment: PSA Test Method: ECLIA/Natalia e 601 Performed By: #### P SA #### [facility] [address], [place] [id number] XR RIBS LEFT INCLUDE CHEST ( MIN [...] Angel Ha MD 05/17/19 Final result Normal [facility] No discrete left rib fracture. No radiographic evidence of acute cardiopulmonary disease. Pulmonary sequela typical of that seen with smoking (passive or active), including possible COPD; correlate with clinical history. Bone scan correlation may be considered if pain persists or worsens, or if clinically there is concern for underlying radiographically occult process. [facility] [place] [facility] 3 XRAY VIEWS OF THE LEFT [...] No rib lesion or fracture is seen. [facility] [place] [place] Rob, [facility] Incoming Radiant Results From [facility] - 05/17/2019 7:10 PM EST EXAMINATION: 3 [...] is concern for underlying radiographically occult process. [place], [place] Vital Signs Date Time Vital Sign Value Performing Clinician Faci lity 05-17-2019 18:34-0500 BP Diastolic 69 mm[Hg] [place], [place] 05-17-2019 18:34-0500 BP Systolic 131 mm[Hg] [place] 05-17-2019 18:34-0500 Pulse (Heart Rate) 81 /min [place], [place] 05-17-2019 18:34-0500 Respiratory Rate 20 /min [place], [place] 05-17-2019 18:16-0500 BMI (Body Mass Index) 38.4 kg/m2 [place] 05-17-2019 18:16-0500 Body Temperature 97.9 [degF] [place], [place] 05-17-2019 18:16-0500 Body weight 117.94 kg [place] 05-17-2019 18:16-0500 Pulse Oximetry 96 % [place] Encounters Encounter Date Encounter Type Care [...] 08-12-2020 General Kandi Hoyng PharmD Work Phone: [facility] Work Phone: Start: 05-17-2019 End: 05-17-2019 Emergency department patient visit [facility] Start: 05-17-2019 End: 05-17-2019 Emergency department patient visit [facility] ED Comment on above: Muscle strain of erick st wall, initial encounter (Primary Dx) Start: 08-26-2018 End: 08-26-2018 Emergency department patient visit [facility] Start: 08-03-2018 End: 08-03-2018 Patient encounter procedure [facility] Procedures Date Procedure Procedure Detail Performing [...] cancer screen colonoscopy Colon cancer screen colonoscopy [place], [place] Start: 08-03-2028 Screening for malign ant neoplasm of colon [facility] Start: 05-01-2024 Glaucoma screening Diabetes: R etinopathy Screening [facility] Start: 01-09-2024 Pneumococcal Vaccine : 65+ Years (2 - PCV) Pneumococcal Vaccine: 65+ Years (2 - PCV) [facility] Comment on above: Postponed from 03/12 (Patient Refused) Start: 10-11-2023 End: 10-11-2023 Patient encounter procedure 10/11/2023 1:00 PM EDT Office Visit [facility] [address] [facility] [address] [place] [address] Humberto Emmanuel MD [address] [facility] [address] [place] [address] [facility] Start: 07-12-2023 Hemoglobin A1c measurement Diabetes: Hemoglobin A1C [facility] Start: 06-23-2023 Medicare Annual Wellness (AWV) Medicare Annual Wellness (AWV) [facility] Start: 04-26-2023 End: 04-26-2023 Patient encounter procedure 04/26/2023 1:30 PM EST Office Visit [facility] [address] [facility] [address] [place] [address] Cinthia Mejia PA [address] [facility] [address] [place] [address] [facility] Start: 11-20-2018 Influenza vaccination Flu vaccine (# 1) [place] Start: 09-11-2018 Annual Wellness Visi t (AWV) Annual Wellness Visit (AWV) [place] Start: 2016 Pneumococcal 65+ yea rs Vaccine (1 of 1 - PPSV23) Pneumococcal 65+ years Vaccine (1 of 1 - PPSV23) [place] Start: 02-21-2015 Creatinine monitoring Creatinine mon itoring [place] Start: 02-21-2015 Lipid screen Lipid screen [place], [place] Start: 02-21-2015 Potassium monitoring Potassium monit oring [place] Start: 2001 Shingles Vaccine (1 of 2) Shingles Vaccine (1 of 2) [place] Start: 1962 DTaP/Tdap/Td vaccine (1 - Tdap) DTaP/Tdap/Td vaccine (1 - Tdap) [place], [place] Start: 1950 AAA screen AAA screen [place], [place] Start: 1950 Hepatitis C screen Hepatitis C scree n [place], [place] Start: 1950 Screening for malign ant neoplasm of colon [facility] Immunizations Immunization Date Immunization Notes Care Provider Fa [facility] 01-12-2023 Influenza, High-dose Seasonal, Quadrivalent, Preservative Free Cinthia Hemmer PA Work Phone: [facility] 01-15-2022 influenza, high dose seasonal, preservative-free Cinthia Hemmer PA Work Phone: [facility] 01-20-2021 influenza, high dose seasonal, preservative-free Cinthia Hemmer PA Work Phone: [facility] 08-12-2020 Mitch and Mitch COVID 19 Vaccine; Translations: [Annette] Bryant Alvares MD Work Phone: [facility] Work Phone: Comment on above: Note: Patient tolera arielle well. No signs or symptoms of adverse reactions. Patient waited a minimum of 15 minutes. 12-19-2019 influenza, high dose seasonal, preservative-free Cinthia Hemmer PA Work Phone: [facility] 12-19-2019 Influenza, High-dose Seasonal, Quadrivalent, Preservative Free Cinthia Hemmer PA Work Phone: [facility] 02-09-2019 influenza, high dose seasonal, preservative-free Cinthia Hemmer PA Work Phone: [facility] 02-09-2019 Influenza, High-dose Seasonal, Quadrivalent, Preservative Free Cinthia Hemmer PA Work Phone: [facility] 03-18-2017 influenza, injectabl e, quadrivalent, contains preservative Cinthia Hemmer PA Work Phone: [facility] 03-18-2017 influenza, injectabl e, quadrivalent, preservative free Cinthia Hemmer PA Work Phone: [facility] 03-12-2017 pneumococcal polysaccharide vaccine, 23 valent Cinthia Hemmer PA Work Phone: [facility] 12-26-2015 influenza, injectabl e, quadrivalent, contains preservative Cinthia Hemmer PA Work Phone: [facility] 12-26-2015 influenza, injectabl e, quadrivalent, preservative free Cinthia Hemmer PA Work Phone: [facility] Payers Date Payer Category Payer Medicare [employer]M MEDICARE ADVANTAGE [facility] MEDICARE ADVANTAGE [id number] 2022-Present [address] [place] [address] [id number] 2019 Medicare BCBS MEDICARE AN THEM MEDIBLUE ESSENTIAL/PLUS xxxxxxxxxxxx 2019-Present [address] [address] [place] [address] xxxxxxxxxxxx [id number] 2019 Medicare [id number] 2017 Medicare [id number] 1950 Unknown [id number] 1950 Unknown [id number] 1951 Unknown [id number] 1950 Unknown [id number] 9 1950 Unknown [id number] 9 1951 Unknown [id number] 9 1950 Unknown [id number] 9 1950 Unknown [id number] 9 Social History Date Type Detail Facility Start: 05-17-2019 Tobacco smoking stat [facility] Former smoker [place], [place] End: 07-06-1992 History of tobacco use Current [place]oker [place] Start: 05-17-2019 End: 04-26-2023 Alcohol intake Current drinker of alcohol (finding) [place] Start: 08-03-2018 Alcohol Comment SOCIAL [place], [place] Start: 1950 Sex Assigned At Not on file [place], [place] Tobacco smoking status Unknown if ever sm [facility] Work Phone: Start: 08-24-2022 Tobacco smoking stat [facility] Never smoked tobacco [facility] Start: 08-24-2022 [...] Identifier Dates USE DIRECTED TWICE A DAY [id number] Start: 07-16-2022 USE DIRECTED TO INJECT INTO THE SKIN TWICE DAILY [id number] Start: 03-26-2022 1 strip by In Vi tro route in the morning. [id number] Start: 02-04-2023 1 Device in the morning. [id number] Start: 02-04-2023 Evaluation note Note Date & Type Note Facility Evaluation note Includes: Assessments for all patient encounters Findings Encounter for Immunization 1st COVID Vac cine with Kandi Sol PharmD 08/12/2020 Health [facility] Work Phone: History general Narrative - Reported Note Date & Type Note Facility History general Narrative - Reported Includes: Medical History in patient's chartNo Medical History Recorded [facility] Work Phone: History of Present illness Narrative Note Date & Type Note Facility History of Present illness Narrative History of Present Illness not supported for this document typeNo History of Present Illness Recorded [facility] Work Phone: Instructions Note Date & Type Note Facility Instructions Instructions not supported for this document typeNo Instructions Recorded [facility] Work Phone: Patient problem outcome Narrative Note Date & Type Note Facility Patient problem outcome Narrative Includes: Evaluations & Outcomes for active GoalsNo Outcomes Recorded [facility] Work Phone: Reason for referral (narrative) Note Date & Type Note Facility Reason for referral (narrative) No Reason for Referral Recorded [facility] Work Phone: Review of systems Narrative - Reported Note Date & Type Note Facility Review of systems Narrative - Reported Review of Systems not supported for this document typeNo Review of Systems Recorded [facility] Work Phone: Discharge Instructions * Instructions* Jamel Del Toro II, PA-C - 05/17/2019 Return to the emergency department anytime should become short of breath develop a fever or have worsening pain. * Attachments The following attachments cannot be sent through Care Everywhere. 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 Advance Directives and Living Will Power of Compliance And Control Analyst Summary Purpose Family History No Family History [...] DATE CREATED AUTHOR AUTHOR'S ORGANIZ ATION 07/24/2021 [facility] dical Specialist DATE CREATED AUTHOR AUTHOR'S ORGANIZ ATION 06/20/2023 [facility] dical Specialists EPIC Care Teams (unrecognized sec tion and content) Insurance Biller Relationship Specialty Start Date End Date Humberto Emmanuel MD [address] [facility] [address] [place] [address] PCP - Benito GRIGGS 03/22/21 Humberto Emmanuel MD [address] [facility] [address] [place] [address] PCP - General Family Medicine 08/20/22 FOR [...] BE BASED ON THE PRIMARY CLINICAL RECORDS. [facility] [employer] [facility]. provides no warranty or guarantee of the accuracy or completeness of information in this document.
== END 2023-07-07 08:42 | disposition home or self-care (01) ==
LOC: MRI 08:41
PROVIDERS: PCP Family Medicine; Visit Provider Physician Assistant
DX: N28.89 Other specified disorders of kidney and ureter (principal); N28.9 Disorder of kidney and ureter, unspecified
CPT/HCPCS: 74183; A9575